=== PATIENT | male | born 1945 | race Caucasian/White ===

== ENCOUNTER 2023-11-10 15:35 | Outpatient (RCR) | payer MEDICARE, OTHER, SELFPAY | END 2023-11-10 23:59 | disposition home or self-care (01) | LOC: RPT 15:35 | PROVIDERS: ATTENDING PHYSICIAN Family Medicine | DX: M48.062 Spinal stenosis, lumbar region with neurogenic claudication (principal); R26.0 Ataxic gait; R26.89 Other abnormalities of gait and mobility; R29.6 Repeated falls; R26.2 Difficulty in walking, not elsewhere classified; Z73.6 Limitation of activities due to disability | CPT/HCPCS: 97110; 97162 ==

== ENCOUNTER 2023-11-17 12:09 | Outpatient (RCR) | payer MEDICARE, OTHER, SELFPAY | END 2023-11-24 15:30 | disposition home or self-care (01) | LOC: RPT 12:09 | PROVIDERS: ATTENDING PHYSICIAN Family Medicine | DX: M48.062 Spinal stenosis, lumbar region with neurogenic claudication (principal); R26.9 Unspecified abnormalities of gait and mobility; R26.0 Ataxic gait; R26.2 Difficulty in walking, not elsewhere classified; R26.89 Other abnormalities of gait and mobility; Z73.6 Limitation of activities due to disability | CPT/HCPCS: 97110 ==

== ENCOUNTER → 2024-06-05 07:30 | Outpatient (REF) | payer MEDICARE, OTHER, SELFPAY | LOC: EMG 07:30 | PROVIDERS: ATTENDING PHYSICIAN Specialist; FAMILY PHYSICIAN Family Medicine | DX: R20.0 Anesthesia of skin (principal) | CPT/HCPCS: 95886; 95911 ==

== ENCOUNTER → 2024-07-10 16:13 | Outpatient (REF) | payer MEDICARE, OTHER, SELFPAY | LOC: PAVMRI 16:13 | PROVIDERS: ATTENDING PHYSICIAN Specialist; FAMILY PHYSICIAN Family Medicine | DX: R26.81 Unsteadiness on feet (principal) | CPT/HCPCS: 70551 ==

== ENCOUNTER 2024-11-10 09:02 | Inpatient (IN) | payer MEDICARE, OTHER, SELFPAY ==
[2024-11-08] VITALS (13 sets, daily range): BP systolic 115–159; BP diastolic 48–99; PULSE 75; O2SAT 99; BMI 30.7
--- NOTE | 2024-11-08 09:14 | ED.GENMED ---
History of Present Illness
General
Chief Complaint: Weakness
Source: patient and ambulance crew
Exam Limitations: none
Time Seen by Provider: 11/08/24 09:07
Nursing documentation reviewed up to this point in time: agreed with
History of Present Illness
History of Present Illness:
The patient is a pleasant 79-year-old man who arrives from home with complaints of 3 to 4 days of generalized weakness and increased difficulty walking. Patient reports he feels he needs to go to ' [facility]' for rehab. Patient admits that he
feels he needs to build up his strength. Patient denies all pain. He denies headache, sore throat, cough, shortness of breath, nausea, vomiting and diarrhea. Patient reports that over the last 3 days, he is fallen 1 time each day, which is
unusual for him. Patient reports that during these episodes he had been walking and slid down to the ground due to a feeling of generalized weakness. Patient reports that last night he slept on the hardwood floor for 6 hours because he had gotten
up to go to the bathroom and on his way back, felt too weak to walk and slept on the floor. Patient has not hit his head with any of these falls over the last few days. Patient denies any pain in his neck, back, chest or abdomen with any of the
falls. He reports on a good day he is able to walk around well with a walker. Patient lives at home with his who he reports is very petite and unable to help him after he falls. Additionally, he reports that she is nearly blind due to
macular degeneration.
Past History
Past History
ED Past Medical History: CAD, HTN, Hypercholesterolemia, IDDM, Valvular disease (h/o TAVR history of 10 of) and Other (colon Polyps GI bleeding)
ED Past Surgical History: Appendectomy, Cardiac (CABG, 2 stents, NSTEMI, Valve replaced) and Cholecystectomy
Social History
Tobacco: Non-smoker
Alcohol: None
Drug: None
Personal:
Living: with family
Employment: Retired
Family History
Family History: Other
Review of Systems
Review of Systems
Allergies reviewed?: Yes
Other source history: ambulance crew
All Other Systems: ROS reviewed and negative except as documented in HPI and ROS
Constitutional: Reports fatigue
EENT: Reports no symptoms
Respiratory: Reports no symptoms
Cardiac: Reports no symptoms
ABD/GI: Reports no symptoms
: Reports no symptoms
Musculoskeletal: Reports other (Generalized muscle weakness, especially in legs)
Skin: Reports no symptoms
Neurological: Reports no symptoms
Endocrine: Reports no symptoms
Hematologic/Lymphatic: Reports no symptoms
Psychiatric: Reports no symptoms
Phy Exam
Physical Exam
Physical Exam:
Physical Exam
General: no apparent distress, not acutely ill. Patient is smiling, conversational. Atraumatic appearing face and head. No areas of scalp contusion or hematoma
Neck: supple. no meningeal signs. normal psoterior pharynx. Dry mucous membrane
Heart: s1/s2 regular rate and rhythm,
Lungs: no acute respiratory distress. clear bilaterally. Breathing comfortably. No vertebral spine tenderness
Abdomen: normal bowel sounds. not tender. no CVAT
Neuro: alert and orientedx3 no focal neurological deficits. Follows all commands appropriately. 5 out of 5 strength in all extremities without drift. Normal [id number]. Visual landry intact
Skin: Healing wound of right medial foot without any sign of right foot swelling or erythema.
Psychiatric: well kept. interactive and cooperative
Extremities: no edema. no calf tenderness. negative homans. good distal pulses. No deformity, tenderness or swelling of upper or lower extremities
Course
Orders/Labs/Results
Orders:
Orders
11/08/24 09:09
Electrocardiogram (*1) Urgent
Reason for Study: Fatigue / Weakness
EKG- Treatment ONCE
Pt Eval And Treat Urgent
Treatment: ambulatory dysfunction
Activity Level: Out of Bed-Early Mobility
11/08/24 09:15
COVID-19 Antigen Urgent
Source: Nasal Swab
Complete Blood Count/With Diff Urgent
Comprehensive Metabolic Panel Urgent
Creatine Phosphokinase Urgent
Comment: ADD ON
Troponin I Urgent
11/08/24 09:50
CR Chest - 2 Views Urgent
Comment:
Reason For Exam: weakness
11/08/24 10:15
Add On- LAB Urgent
Tests Added?: total CK [Creatine Phosphokinase]
11/08/24 12:23
Urinalysis Reflex To Culture Urgent
Date Specimen was Collected: 11/08/24
Time Specimen was Collected: 12:17
Urine Microscopic Reflex Cult Urgent
Urine Culture Urgent
PILAR Source: U
Specimen Description:
Date Specimen was Collected: 11/08/24
Time Specimen was Collected: 12:17
11/08/24 13:04
CefTRIAXone [Rocephin] 1,000 mg IV NOW STA
11/08/24 13:21
Admit/Transfer Patient As Directed
Co-Sign Provider:
Level of Care: Observation services
Assign to:: Medical/Surgical
Physician / Group: jordi
Diagnosis: uti
PRN Pain Medication Management As Directed
May give lesser potent ordered pain med per pt: Yes
preference::
Protocol:: Medication orders for pain may be administered in a
manner that supports deferring to patient preference
when the pt is:
- Requesting an ordered lesser potent pain medication.
Least to most potent pain medications are defined
as: acetaminophen < NSAID < tramadol < opioids
(morphine, oxycodone, hydromorphone).
- Requesting a lesser dose of the same medication IF
ORDERED.
- Requesting a less intrusive route of administration
if both routes are prescribed by the provider (PO <
IV).
01/29/25 13:22
Code Status As Directed
Resuscitation Status: Full Code
11/08/24 13:25
Influenza A+B Rapid Molecular Urgent
PILAR Source: Nasal Swab
Specimen Description:
Abnormal Lab Results
11/08/24 11/08/24
09:15 12:23
WBC 20.4 H 10^3/uL
(4.8-10.8)
RBC 4.02 L 10^6/uL
(4.70-6.10)
Hgb 12.0 L g/dL
(13.0-18.0)
Hct 36.2 L %
(39.0-52.0)
MPV 10.5 H fL
(7.4-10.4)
Abs Immat Gran (auto) 0.1 H 10^3/uL
(0-0.05)
Absolute Neuts (auto) 15.5 H 10^3/uL
(1.4-6.5)
Absolute Monos (auto) 1.9 H 10^3/uL
(0.1-0.6)
Neutrophils % 75.9 H %
(42.2-75.2)
Lymphocytes % 13.4 L %
(20.5-51.1)
Monocytes % 9.4 H %
(1.7-9.3)
BUN 27 H mg/dl
(9-20)
Glucose 163 H mg/dl
(70-99)
Troponin I 0.045 H* ng/ml
Urine Ketones 1+ A
(Negative)
Ur Occult Blood Reflex 1+ A
(Negative)
Urine Nitrite (Reflex) Positive A
(Negative)
Leukocyte Esterase Rfl 2+ A
(Negative)
Urine RBC 3-6 A /HPF
(0-2)
Urine WBC (Reflex) 26-30 A /HPF
(0-5)
Urine Bacteria (Reflex) Many A
(Negative)
Urine Albumin (Reflex) 2+ A
(Neg - Trace)
11/08/24 09:15
11/08/24 09:15
Vital Signs
Initial and Last Documented VS:
Initial Vital Signs
Temp Pulse Resp BP Pulse Ox
98.1 F 83 18 147/63 97
11/08/24 08:57 11/08/24 08:57 11/08/24 08:57 11/08/24 08:57 11/08/24 08:57
Last Documented Vital Signs
Temp Pulse Resp BP Pulse Ox
98.1 F 76 18 115/83 97
11/08/24 08:57 11/08/24 10:00 11/08/24 10:00 11/08/24 10:00 11/08/24 09:03
MDM/Problems Addressed
Differential Diagnosis Includes:
Acute on chronic ambulatory dysfunction, acute UTI, acute hyponatremia, acute coronary syndrome
MDM/Problems Addressed:
Patient presents with acute generalized weakness and ambulatory dysfunction
Chronic conditions affecting care: DM and CAD
Acute Exacerbation and/or Progression of Chronic Illness:
Patient may have acute exacerbation of coronary artery disease causing generalized weakness
*Radiology
Radiology exam reviewed: preliminary read by ED provider (Chest x-ray read by me. No acute disease) and radiology read reviewed
*Pulse Oximetry
Patient hypoxic: no
*EKG
Interpreted by ED Provider?: Yes
Interpretation: abnormal
Comparison EKG: no changes
Rate: normal
Rhythm: sinus
Obion: left axis deviation
Interval: normal interval
QRS Pattern: right bundle branch block
Ischemia: non-specific ST changes
*Grid Trimmer Interpretation
Rate: normal
Interpretation: normal
Rhythm: sinus
*Critical Care Note
Total Time (30-74mins, 75-104mins- exclusive of procedures): Not Applicable
Data Reviewed
Review of Other/Old Records Reveals: Testing (Echo done in August 2023 showed an EF of 45 to 50%)
ED Attending Note
-
Portions of this chart may have been created with voice recognition software.� Occasional wrong word or��sound alike� substitutions may have occurred due to the inherent limitations of voice recognition software.
Discharge Plan
Departure
Patient Disposition: Admit
Date of Disposition: 11/08/24
Time of Disposition: 13:02
Admit to: Med/Surg
Presentation/result/management discussed w/ accepting MD/DO: Hospitalist
Patient with high blood pressure during this ER visit?: No
Condition: Good
Covid-19: Negative COVID-19
Discharge Problem:
Falls frequently, Acute UTI, Generalized muscle weakness
Prescriptions:
No Action
isosorbide mononitrate 30 MG tablet extended release 24 hr
30 mg PO BID
lisinopril 5 MG tablet
5 mg PO DAILY
cyanocobalamin (vitamin B-12) 1,000 MCG tablet
1,000 mcg PO DAILY
aspirin 81 MG tablet,delayed release (DR/EC)
81 mg PO DAILY
clopidogrel [Plavix] 75 MG tablet
75 mg PO DAILY Qty: 30 0RF
atorvastatin [Lipitor] 80 mg Tablet
80 mg PO QPM
famotidine [Pepcid] 40 mg Tablet
40 mg PO HS
metoprolol succinate 25 mg Tablet Extended Release 24 Hr
25 mg PO DAILY
spironolactone 50 MG tablet
50 mg PO DAILY
PreserVision AREDS 2,148 mcg-113 mg-45 mg-17.4mg Tablet
1 tab PO DAILY
Novolin R FlexPen 100 unit/mL (3 mL) Insulin Pen
30 unit SC TID
Referrals:
Holly Serrato MD [Family Provider] -
Interventions
Interventions:
*Risk Screen - Suicide Last Done: 11/08/24 08:57
*General Assessment Last Done: 11/08/24 08:57
*Neglect/Abuse Screening Last Done: 11/08/24 08:57
*ED COVID-19 Vaccine History Last Done: 11/08/24 09:30
ED- Cardiac Assessment Last Done: 11/08/24 09:30
ED- Neurological Assessment Last Done: 11/08/24 09:30
ED- Pulmonary Assessment Last Done: 11/08/24 09:30
Discharge Date and Time
Print Language: SLOVENIAN
[2024-11-08 09:27] LABS: % Basophils 0.4 % (0-2); % Eosinophils 0.6 % (0-6); % Immature Granulocytes 0.3 % (0-0.5); % Lymphocytes 13.4 % (20.5-51.1); % Monocytes 9.4 % (1.7-9.3); % Neutrophils 75.9 % (42.2-75.2); Absolute Basophils 0.1 10^3/uL (0-0.2); Absolute Eosinophils 0.1 10^3/uL (0-0.7); Absolute Immature Granulocytes 0.1 10^3/uL (0-0.05); Absolute Lymphocytes 2.7 10^3/uL (1.2-3.4); Absolute Monocytes 1.9 10^3/uL (0.1-0.6); Absolute Neutrophils 15.5 10^3/uL (1.4-6.5); Hematocrit 36.2 % (39.0-52.0); Mean Corp Hgb Conc. 33.1 g/dL (33.0-37.0); Mean Corpuscular Hgb 29.9 pg (27.0-31.0); Mean Platelet Volume 10.5 fL (7.4-10.4); Nucleated Red Blood Cells % 0 % (-); Platelet Count 203 10^3/uL (130-400); Red Blood Cell Count 4.02 10^6/uL (4.70-6.10); Red Cell Dist. Width 13.1 % (11.5-14.5); White Blood Cell Count 20.4 10^3/uL (4.8-10.8)
[2024-11-08 09:39] LABS: COVID-19 Antigen Negative (Negative)
[2024-11-08 09:45] LABS: ALT (SGPT) 16 U/L (0-50); AST (SGOT) 21 U/L (17-59); Albumin 4.1 g/dl (3.5-5.0); Alkaline Phosphatase 60 U/L (38-126); Blood Urea Nitrogen 27 mg/dl (9-20); Calcium 9.4 mg/dl (8.4-10.2); Carbon Dioxide 28 mmol/L (22-30); Chloride 100 mmol/L (98-107); Glucose 163 mg/dl (70-99); Potassium 4.4 mmol/L (3.5-5.1); Sodium 139 mmol/L (135-145); Total Bilirubin 0.8 mg/dl (0.2-1.3); eGFR 55.19
[2024-11-08 09:56] LABS: Troponin I 0.045 ng/ml
[2024-11-08 12:48] LABS: Urine Albumin 2+ (Neg - Trace); Urine Bilirubin Negative (Negative); Urine Character Clear (Clear); Urine Color Yellow; Urine Glucose Negative (Negative); Urine Ketone 1+ (Negative); Urine Leukocyte 2+ (Negative); Urine Nitrite Positive (Negative); Urine Occult Blood 1+ (Negative); Urine Urobilinogen Negative (Neg - 1+)
[2024-11-08 13:10] LABS: Urine Bacteria Many (Negative); Urine White Cell 26-30 /HPF (0-5)
--- NOTE | 2024-11-08 13:25 | HPS.HSE ---
Addendum entered and electronically signed by Fanta Carranza MD 11/08/24 13:37:
History of CVA a year ago at [place].
Original Note:
Family Physician
-
Family Physician: Holly Serrato
Chief Complaint
-
falls
History of Present Illness
79-year-old male past medical history of NSTEMI status post stents, CAD status post CABG, severe status post TAVR in 2017, right bundle branch block, hyponatremia, type 2 diabetes, CKD 3, hypertension, hyperlipidemia, blindness secondary to
macular degeneration, presenting with 3 to 4 days of generalized weakness and difficulty walking. He reports that he feels like he needs to go to [facility] for rehab. He denies pain. He denies headache, sore throat, cough, shortness of breath,
nausea vomiting or diarrhea or urinary symptoms. Over the past 2 days he has fallen 1 time each day. Last night he slept on the ground for 6 hours because he fell on the way to the bathroom. He did not hit his head. He normally ambulates with
walker.
Denies smoking or alcohol use.
Medical History
Past Medical History
Past Medical History: Reports Other (NSTEMI status post stents, CAD status post CABG, severe status post TAVR in 2017, right bundle branch block, hyponatremia, type 2 diabetes, CKD 3, hypertension, hyperlipidemia, blindness secondary to macular
degeneration)
Past Surgical History: Reports None
Social History
Tobacco: Non-smoker
Alcohol: None
Drug: None
Family History
Family History: Not pertinent
Allergies / Home Medications
Allergies reflects when Allergies were last updated in [facility].
Home Medications with original date entered in [employer] [facility]
Allergy/Medication List:
Allergies
Allergy/AdvReac Type Severity Reaction Status Date / Time
codeine Allergy Nausea Verified 11/08/24 09:05
Neuromuscular Blockers, AdvReac Unknown Unknown Verified 11/08/24 09:05
Steroidal
Home Medications
aspirin 81 mg tablet,delayed release 81 mg PO DAILY Blood clot prevention/tx 07/28/20
cyanocobalamin (vitamin B-12) 1,000 mcg tablet 1,000 mcg PO DAILY Supplement 07/28/20
isosorbide mononitrate 30 mg tablet,extended release 24 hr 30 mg PO BID Heart disease/condition 07/28/20
lisinopril 5 mg tablet 5 mg PO DAILY Blood pressure 07/28/20
clopidogrel 75 mg tablet (Plavix) 75 mg PO DAILY #30 tabs 08/24/23
atorvastatin 80 mg tablet (Lipitor) 80 mg PO QPM 11/08/24
famotidine 40 mg tablet (Pepcid) 40 mg PO HS 11/08/24
insulin regular human 100 unit/mL (3 mL) subcutaneous pen (Novolin R FlexPen) 30 unit SC TID 11/08/24
metoprolol succinate 25 mg tablet,extended release 24 hr 25 mg PO DAILY 11/08/24
spironolactone 50 mg tablet 50 mg PO DAILY Fluid retention/Swelling 11/08/24
vitamins A,C,G-djcd-jifwtt 2,148 mcg-113 mg-45 mg-17.4 mg tablet (PreserVision AREDS) 1 tab PO DAILY 11/08/24
Review of Systems
-
History Source: Patient
A 12 point ROS was completed and negative except as noted: Yes
Constitutional: Reports No Symptoms
EENT: Reports No Symptoms
Respiratory: Reports No Symptoms
Cardiac: Reports No Symptoms
Abdomen/GI: Reports No Symptoms
: Reports No Symptoms
Musculoskeletal: Reports No Symptoms
Skin: Reports No Symptoms
Neurological: Reports No Symptoms
Endocrine: Reports No Symptoms
Hematologic/Lymphatic: Reports No Symptoms
Psych: Reports No Symptoms
Physical Exam
Vital Signs
Vital Signs
Temp Pulse Resp BP Pulse Ox
98.1 F 76 18 115/83 97
11/08/24 08:57 11/08/24 10:00 11/08/24 10:00 11/08/24 10:00 11/08/24 09:03
Physical Exam
General: Well Developed, Well Nourished and No Apparent Distress
HEENT: NormoCephalic, Moist mucous membranes and Atraumatic
Respiratory: Clear
Cardiac: S1/S2 and Regular Rhythm; No Murmur or Rub
GI: Soft, Non Tender, Non Distended and Normal Bowel Sounds; No Organomegaly
Rectal: Deferred by Provider
Musculoskeletal: No Clubbing, No Cyanosis and No Edema
Skin: No Rash
Neuro: Nonfocal/grossly intact
Laboratory Results
-
11/08/24 09:15
11/08/24 09:15
Laboratory Results
Total Bilirubin 0.8 mg/dl (0.2-1.3) 11/08/24 09:15
AST 21 U/L (17-59) 11/08/24 09:15
ALT 16 U/L (0-50) 11/08/24 09:15
Alkaline Phosphatase 60 U/L (38-126) 11/08/24 09:15
Troponin I 0.045 ng/ml H* 11/08/24 09:15
Data Reviewed
-
Lab Data: Labs Reviewed by me
Old Records: Reviewed
Impression/Plan
-
IMPRESSION:
PLAN:
# Ambulatory dysfunction/falls secondary to UTI
-No urinary symptoms
-Leukocytosis of 20
-Urinalysis shows 26-30 WBC, positive nitrates
-COVID-negative, check influenza
-Chest x-ray negative
-Ceftriaxone
History of CAD/NSTEMI status post stents
CAD status post CABG
-Continue aspirin, Plavix, statin
-Continue isosorbide nitrate
-Continue metoprolol
-Continue spironolactone
Severe aortic stenosis status post TAVR in 2017
Ischemic cardiomyopathy
-EF of 45%
-Continue spironolactone
History of right bundle branch block
Type 2 diabetes
-Continue Novolin 30 units 3 times daily
Essential hypertension
-Continue lisinopril
CKD 3
-Renal function at baseline
Hyperlipidemia
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
GERD
-Continue famotidine
Obesity
Full code
DVT prophylaxis�heparin
Cardiac diet
[2024-11-08] MEDS: ROCEPHIN 1000 MG IV (13:46)
[2024-11-08 14:15] LABS: Creatine Phosphokinase 144 U/L (55-170)
[2024-11-08 19:36] LABS: Glucose - Point of Care 240 mg/dl (70-99)
--- NOTE | 2024-11-08 19:58 | PTCARENOTE ---
Pt received from ED to [facility]. Pt oriented to room and call chavez.
[2024-11-08] MEDS: NOVOLOG FLEXPEN-LOW RESISTANCE SC (20:17)
[2024-11-08] MEDS: NovoLIN R Flexpen SC (20:17)
[2024-11-08] MEDS: PEPCID 40 MG PO (20:19)
[2024-11-08] MEDS: LIPITOR 80 MG PO (20:19)
[2024-11-08] MEDS: IMDUR (EXTENDED RELEASE) 30 MG PO (20:19)
[2024-11-08] MEDS: HEPARIN 5000 UNITS SC (20:19)
[2024-11-08 23:18] LABS: Glucose - Point of Care 228 mg/dl (70-99)
--- NOTE | 2024-11-09 07:04 | W.PN.HOSP.TC ---
Today's Communication/Plan
-
PT/OT
Telemetry
Antibiotics
Assessment / Plan
Assessment / Plan
Physical Exam
General: Well Developed, Well Nourished and No Apparent Distress
HEENT: Normocephalic, Moist mucous membranes and Atraumatic
Respiratory: Clear
Cardiac: S1/S2 and Regular Rhythm; No Murmur or Rub
GI: Soft, Non Tender, Non Distended and Normal Bowel Sounds.
: No CVA tenderness on either side.
Musculoskeletal: No Cyanosis and No Edema
Skin: Warm. Dry.
Neuro: AAOx3. Nonfocal/grossly intact.
Assessment/Plan
79-year-old male past medical history of NSTEMI status post stents, CAD status post CABG, severe status post TAVR in 2017, right bundle branch block, hyponatremia, type 2 diabetes, CKD 3, hypertension, hyperlipidemia, blindness secondary to
macular degeneration, presented with 3 to 4 days of generalized weakness and difficulty walking. He reported that he felt like he needs to go to [facility] for rehab. He denied pain, headache, sore throat, cough, shortness of breath, nausea
vomiting or diarrhea or urinary symptoms. Over the 2 days prior to presentation, he had fallen 1 time each day. The night before admission, he slept on the ground for 6 hours because he fell on the way to the bathroom. He did not hit his head and he
denied any loss of consciousness associated with the fall. He normally ambulates with walker. Denies smoking or alcohol use.
#Ambulatory dysfunction/falls suspected secondary to UTI
-Not syncope as per patient's description (on 11/09/24) of events associated with falls
-Leukocytosis of 20
-Urinalysis shows 26-30 WBC, positive nitrates
-COVID-negative, influenza negative
-Chest x-ray unremarkable
-Continue Ceftriaxone, urine culture growing gram negative bacilli
#History of CAD/NSTEMI status post stents
#CAD status post CABG
-Continue aspirin, Plavix, statin
-Continue isosorbide nitrate
-Continue metoprolol
-Continue spironolactone
#Severe aortic stenosis status post TAVR in 2017
#Ischemic cardiomyopathy
-EF of 45%
-Continue spironolactone
#History of CVA a year ago at [place]
#History of right bundle branch block
#Type 2 diabetes mellitus
-Continue Novolin 30 units 3 times daily
#Essential hypertension
-Continue lisinopril
#CKD 3
-Renal function at baseline
#Hyperlipidemia
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
#GERD
-Continue famotidine
#Obesity
Full code
DVT prophylaxis�heparin
Cardiac diet
Anticipated Discharge: 24 - 48 hours
Subjective/Interval History
-
Date of Service: November 09, 2024
Patient was seen and examined. He reported feeling okay, denied any complaints.
Objective Data
-
Labs:
Laboratory Results
11/09/24
06:56
WBC Pending
Hgb Pending
Hct Pending
Plt Count Pending
Sodium Pending
Potassium Pending
Chloride Pending
Carbon Dioxide Pending
BUN Pending
Creatinine Pending
Glucose Pending
Calcium Pending
Total Bilirubin Pending
AST Pending
ALT Pending
Alkaline Phosphatase Pending
Vital Signs:
Vital Signs
Temp Pulse Resp BP Pulse Ox
98.0 F 83 16 125/52 96
11/08/24 23:00 11/08/24 23:00 11/08/24 23:00 11/08/24 23:00 11/08/24 23:00
I&O
11/08/24 11/09/24 11/10/24
06:59 06:59 06:59
Intake Total 240 / 240
Output Total 200 / 200
Balance 40 / 40
[2024-11-09 07:51] VITALS: BP 152/72
[2024-11-09 08:03] LABS: Glucose - Point of Care 191 mg/dl (70-99)
[2024-11-09 08:11] LABS: % Basophils 0.6 % (0-2); % Eosinophils 2.3 % (0-6); % Immature Granulocytes 0.4 % (0-0.5); % Lymphocytes 16.3 % (20.5-51.1); % Monocytes 9.7 % (1.7-9.3); % Neutrophils 70.7 % (42.2-75.2); Absolute Basophils 0.1 10^3/uL (0-0.2); Absolute Eosinophils 0.3 10^3/uL (0-0.7); Absolute Lymphocytes 1.8 10^3/uL (1.2-3.4); Absolute Monocytes 1.1 10^3/uL (0.1-0.6); Hematocrit 31.7 % (39.0-52.0); Hemoglobin 10.6 g/dL (13.0-18.0); Mean Corp Hgb Conc. 33.4 g/dL (33.0-37.0); Mean Corpuscular Volume 89.8 fL (80.0-94.0); Mean Platelet Volume 11.2 fL (7.4-10.4); Nucleated Red Blood Cells % 0 % (-); Platelet Count 177 10^3/uL (130-400); Red Blood Cell Count 3.53 10^6/uL (4.70-6.10); Red Cell Dist. Width 13.1 % (11.5-14.5); White Blood Cell Count 11.3 10^3/uL (4.8-10.8)
[2024-11-09 08:30] LABS: ALT (SGPT) 14 U/L (0-50); AST (SGOT) 18 U/L (17-59); Albumin 3.4 g/dl (3.5-5.0); Alkaline Phosphatase 55 U/L (38-126); Blood Urea Nitrogen 23 mg/dl (9-20); Calcium 8.4 mg/dl (8.4-10.2); Carbon Dioxide 27 mmol/L (22-30); Chloride 101 mmol/L (98-107); Estimated Creatinine Clearance 56 ml/min; Glucose 170 mg/dl (70-99); Potassium 4.2 mmol/L (3.5-5.1); Sodium 136 mmol/L (135-145); Total Bilirubin 0.8 mg/dl (0.2-1.3); Total Protein 5.9 g/dl (6.3-8.2); eGFR > 60.00
[2024-11-09] MEDS: NovoLIN R Flexpen 30 UNITS SC ×3 (08:40→17:20)
[2024-11-09] MEDS: NOVOLOG FLEXPEN-LOW RESISTANCE 1 UNITS SC ×2 (08:41→12:38)
[2024-11-09] MEDS: HEPARIN 5000 UNITS SC ×2 (08:41→20:23)
[2024-11-09] MEDS: OCUVITE SOFTGEL 1 CAP PO (08:42)
[2024-11-09] MEDS: TOPROL XL 25 MG PO (08:42)
[2024-11-09] MEDS: VITAMIN B-12 1000 MCG PO (08:42)
[2024-11-09] MEDS: ALDACTONE 50 MG PO (08:42)
[2024-11-09] MEDS: ZESTRIL 5 MG PO (08:42)
[2024-11-09] MEDS: ASPIR LOW (ENTERIC COATED) 81 MG PO (08:42)
[2024-11-09] MEDS: IMDUR (EXTENDED RELEASE) 30 MG PO ×2 (08:42→20:23)
[2024-11-09] MEDS: PLAVIX 75 MG PO (08:42)
[2024-11-09 10:25] LABS: Glycohemoglobin (HgbA1c) 7.6 % (4.0-5.6)
--- NOTE | 2024-11-09 10:28 | CM ---
CM reviewed chart, patient seen bedside, initial assessment completed. Patient resides with his in a two story home, ramp to enter, bedroom on second floor (7 + 7 steps to second floor). Patient reports having a walker, wheelchair, and scooter
in the home. Patient reports VN in past, unsure agency, outpatient PT at ambulatory center, and rehab in past ([facility]). Patient PCP Holly Serrato, pharmacy [facility]. PT recommendations acute vs SNF- discussed with Yuan at
[facility], do not see qualifying acute rehab diagnosis. Patient unsure if he would like SNF at this time, would like to consider it. Patient [facility] qualify [facility]. GARCIA form provided/reviewed, refused to sign, placed in chart. CM will
continue to follow for all discharge planning needs.
Plan; home with VN versus SNF, patient unsure at this time.
[2024-11-09 12:02] LABS: Glucose - Point of Care 198 mg/dl (70-99)
[2024-11-09 12:44] VITALS: BP 116/52
[2024-11-09 13:02] VITALS: BP 116/52; PULSE 73
[2024-11-09] MEDS: ROCEPHIN 1000 MG IV (13:45)
[2024-11-09] MEDS: STERILE WATER FOR INJECTION 10 ML IV (13:46)
[2024-11-09 15:00] VITALS: BP 146/64
[2024-11-09 17:02] LABS: Glucose - Point of Care 134 mg/dl (70-99)
[2024-11-09] MEDS: NOVOLOG FLEXPEN-LOW RESISTANCE SC (17:08)
[2024-11-09] MEDS: LIPITOR 80 MG PO (17:20)
[2024-11-09 19:00] VITALS: BP 118/74
[2024-11-09] MEDS: PEPCID 40 MG PO (20:24)
[2024-11-09 21:34] LABS: Glucose - Point of Care 100 mg/dl (70-99)
[2024-11-09 23:13] VITALS: BP 149/71
[2024-11-10 03:00] VITALS: BP 137/58
[2024-11-10 06:56] VITALS: BP 134/70
--- NOTE | 2024-11-10 07:26 | W.PN.HOSP.TC ---
Today's Communication/Plan
-
Discharge today
Assessment / Plan
Assessment / Plan
Physical Exam
General: Well Developed, Well Nourished and No Apparent Distress
HEENT: Normocephalic, Moist mucous membranes and Atraumatic
Respiratory: Clear
Cardiac: S1/S2 and Regular Rhythm; No Murmur or Rub
GI: Soft, Non Tender, Non Distended and Normal Bowel Sounds.
: No CVA tenderness on either side.
Musculoskeletal: No Cyanosis and No Edema
Skin: Warm. Dry.
Neuro: AAOx3. Nonfocal/grossly intact.
Assessment/Plan
79-year-old male past medical history of NSTEMI status post stents, CAD status post CABG, severe status post TAVR in 2017, right bundle branch block, hyponatremia, type 2 diabetes, CKD 3, hypertension, hyperlipidemia, blindness secondary to
macular degeneration, presented with 3 to 4 days of generalized weakness and difficulty walking. He reported that he felt like he needs to go to [facility] for rehab. He denied pain, headache, sore throat, cough, shortness of breath, nausea
vomiting or diarrhea or urinary symptoms. Over the 2 days prior to presentation, he had fallen 1 time each day. The night before admission, he slept on the ground for 6 hours because he fell on the way to the bathroom. He did not hit his head and he
denied any loss of consciousness associated with the fall. He normally ambulates with walker. Denies smoking or alcohol use.
#Ambulatory dysfunction/falls suspected secondary to UTI
#Klebsiella Pneumoniae UTI
-No symptoms of UTI however
-Not syncope as per patient's description (on 11/09/24) of events associated with falls
-Leukocytosis of 20
-Urinalysis shows 26-30 WBC, positive nitrates
-COVID-negative, influenza negative
-Chest x-ray unremarkable
-Continue Ceftriaxone, on discharge, transition to oral third generation Cephalosporin for a short course
-Patient does not want to go to acute rehab facility/SNF
-Patient did not want an echocardiogram this hospitalization, especially since he said that he did not pass out prior to arrival
-Practice fall precautions at home
#History of CAD/NSTEMI status post stents
#CAD status post CABG
-Continue aspirin, Plavix, statin
-Continue isosorbide nitrate
-Continue metoprolol
-Continue spironolactone
#Mildly Low Magnesium
-IV Magnesium given on 11/10/24
-Oral magnesium supplementation on discharge
-Potassium is okay
-Recheck BMP and Magnesium outpatient
#Severe aortic stenosis status post TAVR in 2017
#Ischemic cardiomyopathy
-EF of 45%
-Continue spironolactone
#History of CVA a year ago at [place]
#History of right bundle branch block
#Type 2 diabetes mellitus
-Continue Novolin 30 units 3 times daily
#Essential hypertension
-Continue lisinopril
#CKD 3
-Renal function at baseline
#Hyperlipidemia
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
#GERD
-Continue famotidine
#Obesity
Full code
DVT prophylaxis�heparin
Cardiac diet
More than 30 minutes spent in discharge including
Final examination of the patient
Summarizing hospital stay
Instructions for continuing care to all relevant caregivers
Preparation of discharge records, prescriptions, and referral forms
Total time spent (in minutes): 37
Anticipated Discharge: Today
Subjective/Interval History
-
Date of Service: November 10, 2024
Patient was seen and examined. He denied any symptoms or complaints.
Objective Data
-
Labs:
Laboratory Results
11/10/24
07:19
WBC Pending
Hgb Pending
Hct Pending
Plt Count Pending
Sodium Pending
Potassium Pending
Chloride Pending
Carbon Dioxide Pending
BUN Pending
Creatinine Pending
Glucose Pending
Calcium Pending
Vital Signs:
Vital Signs
Temp Pulse Resp BP Pulse Ox
97.9 F 87 18 134/70 97
11/10/24 06:56 11/10/24 06:56 11/10/24 06:56 11/10/24 06:56 11/10/24 06:56
I&O
11/09/24 11/10/24 11/11/24
06:59 06:59 06:59
Intake Total 240 / 240 720 / 720
Output Total 200 / 200 400 / 400
Balance 40 / 40 320 / 320
[2024-11-10 07:52] LABS: Hematocrit 33.5 % (39.0-52.0); Hemoglobin 11.5 g/dL (13.0-18.0); Mean Corp Hgb Conc. 34.3 g/dL (33.0-37.0); Mean Corpuscular Hgb 30.5 pg (27.0-31.0); Mean Corpuscular Volume 88.9 fL (80.0-94.0); Mean Platelet Volume 10.7 fL (7.4-10.4); Platelet Count 193 10^3/uL (130-400); Red Blood Cell Count 3.77 10^6/uL (4.70-6.10); Red Cell Dist. Width 12.7 % (11.5-14.5); White Blood Cell Count 7.7 10^3/uL (4.8-10.8)
[2024-11-10 08:25] LABS: Blood Urea Nitrogen 22 mg/dl (9-20); Calcium 8.5 mg/dl (8.4-10.2); Carbon Dioxide 28 mmol/L (22-30); Chloride 99 mmol/L (98-107); Estimated Creatinine Clearance 56 ml/min; Glucose 108 mg/dl (70-99); Magnesium 1.4 mg/dl (1.6-2.3); Potassium 4.6 mmol/L (3.5-5.1); Sodium 135 mmol/L (135-145); eGFR > 60.00
[2024-11-10 08:35] LABS: Glucose - Point of Care 128 mg/dl (70-99)
[2024-11-10] MEDS: NOVOLOG FLEXPEN-LOW RESISTANCE SC ×2 (08:36→17:06)
[2024-11-10] MEDS: IMDUR (EXTENDED RELEASE) 30 MG PO (08:37)
[2024-11-10] MEDS: ASPIR LOW (ENTERIC COATED) 81 MG PO (08:37)
[2024-11-10] MEDS: ZESTRIL 5 MG PO (08:37)
[2024-11-10] MEDS: PLAVIX 75 MG PO (08:37)
[2024-11-10] MEDS: ALDACTONE 50 MG PO (08:37)
[2024-11-10] MEDS: VITAMIN B-12 1000 MCG PO (08:37)
[2024-11-10] MEDS: NovoLIN R Flexpen 30 UNITS SC ×3 (08:37→17:06)
[2024-11-10] MEDS: OCUVITE SOFTGEL 1 CAP PO (08:38)
[2024-11-10] MEDS: HEPARIN 5000 UNITS SC (08:38)
[2024-11-10] MEDS: TOPROL XL 25 MG PO (08:38)
[2024-11-10 11:15] VITALS: BP 99/55
[2024-11-10 11:47] LABS: Glucose - Point of Care 206 mg/dl (70-99)
[2024-11-10 12:07] VITALS: BP 105/58; PULSE 93; O2SAT 100
[2024-11-10] MEDS: NOVOLOG FLEXPEN-LOW RESISTANCE 2 UNITS SC (12:19)
[2024-11-10] MEDS: ROCEPHIN 1000 MG IV (13:11)
[2024-11-10] MEDS: STERILE WATER FOR INJECTION 10 ML IV (13:11)
--- NOTE | 2024-11-10 14:01 | CM ---
CM received update patient made inpatient status, patient seen bedside, discussed switch to inpatient status, IMM provided, placed in chart. CM discussed PT evaluations continue to recommend rehab. Patient reports his has macular degeneration
and patient is not agreeable to rehab, does not want to leave alone in the home. Patient reports he feels comfortable returning home, is agreeable to referral to [facility] for home therapy. Referral placed in [facility]. CM will continue to follow for
all discharge planning needs.
Plan; home with VN, patient not agreeable to rehab at this time.
[2024-11-10 15:39] VITALS: BP 110/66
[2024-11-10] MEDS: MAGNESIUM SULFATE 50 IV (16:44)
[2024-11-10 16:56] LABS: Glucose - Point of Care 148 mg/dl (70-99)
[2024-11-10] MEDS: LIPITOR 80 MG PO (17:05)
== END 2024-11-10 19:59 | disposition home or self-care (01) | DRG 690 ==
LOC: 4 WEST ACU 09:02
PROVIDERS: ADMITTING PHYSICIAN Hospitalist; ATTENDING PHYSICIAN Hospitalist; EMERGENCY PHYSICIAN Emergency Medicine; FAMILY PHYSICIAN Family Medicine
DX: N39.0 Urinary tract infection, site not specified (principal); Z11.52 Encounter for screening for COVID-19; Z86.73 Personal history of transient ischemic attack (TIA), and cerebral infarction without residual deficits; I25.5 Ischemic cardiomyopathy; E11.22 Type 2 diabetes mellitus with diabetic chronic kidney disease; N18.30 Chronic kidney disease, stage 3 unspecified; I12.9 Hypertensive chronic kidney disease with stage 1 through stage 4 chronic kidney disease, or unspecified chronic kidney disease; E78.00 Pure hypercholesterolemia, unspecified; K21.9 Gastro-esophageal reflux disease without esophagitis; E66.9 Obesity, unspecified; Z68.30 Body mass index [BMI] 30.0-30.9, adult; H35.30 Unspecified macular degeneration; I25.10 Atherosclerotic heart disease of native coronary artery without angina pectoris; Z79.4 Long term (current) use of insulin; Z86.0100 Personal history of colon polyps, unspecified; Z95.1 Presence of aortocoronary bypass graft; Z95.2 Presence of prosthetic heart valve
CPT/HCPCS: 71046; 80048; 80053; 81003; 81015; 82550; 82962; 83036; 83735; 84484; 85025; 85027; 87077; 87086; 87186; 87502; 87811; 93005; 96374; 97167; 97530; 99285

== ENCOUNTER → 2024-11-16 15:24 | Outpatient (REF) | payer MEDICARE, OTHER, SELFPAY ==
[2024-11-16 17:00] LABS: Hematocrit 35.2 % (39.0-52.0); Hemoglobin 11.8 g/dL (13.0-18.0); Mean Corp Hgb Conc. 33.5 g/dL (33.0-37.0); Mean Corpuscular Hgb 30.2 pg (27.0-31.0); Mean Platelet Volume 10.3 fL (7.4-10.4); Platelet Count 281 10^3/uL (130-400); Red Blood Cell Count 3.91 10^6/uL (4.70-6.10); Red Cell Dist. Width 13.2 % (11.5-14.5); White Blood Cell Count 11.3 10^3/uL (4.8-10.8)
[2024-11-16 17:03] LABS: Blood Urea Nitrogen 31 mg/dl (9-20); Carbon Dioxide 28 mmol/L (22-30); Chloride 103 mmol/L (98-107); Glucose 206 mg/dl (70-99); Magnesium 1.7 mg/dl (1.6-2.3); Sodium 138 mmol/L (135-145); eGFR > 60.00
== END ==
LOC: CLAB 15:24
PROVIDERS: ATTENDING PHYSICIAN Family Medicine
DX: I25.5 Ischemic cardiomyopathy (principal); N18.30 Chronic kidney disease, stage 3 unspecified; E83.42 Hypomagnesemia
CPT/HCPCS: 36415; 80048; 83735; 85027

== ENCOUNTER 2025-05-17 10:58 | Emergency (ER) | payer MEDICARE, OTHER, SELFPAY ==
[2025-05-17 11:03] VITALS: BP 117/58
[2025-05-17 11:05] VITALS: BP 117/58
[2025-05-17 11:07] VITALS: BMI 32.0
[2025-05-17 12:00] VITALS: BP 111/55
--- NOTE | 2025-05-17 12:52 | ED.GENMED ---
History of Present Illness
General
Chief Complaint: Fall
Source: patient, records and spouse
Time Seen by Provider: 05/17/25 12:37
History of Present Illness
History of Present Illness:
80-year-old male presents emergency department after slipping down of the ground while trying to get dressed this morning. Patient had a fall on and was hospitalized at [facility], discharged on Wednesday. He states that he was supposed to
have physical therapy at home upon discharge but they have not yet started their PT visits. He says he feels 'fine', but does note that he has generalized weakness particularly in his legs that he noticed especially this morning. Of note, patient
has a history of CVA, and at baseline says that his left leg is weak. This is not changed. He denies new numbness, new tingling, new weakness focal, chest pain, shortness of breath, palpitations, headache, dizziness, neck pain, nausea, vomiting,
anorexia, urinary symptoms, diarrhea, constipation, black stools, or other complaints. Today, while getting dressed he was able to pull up his diaper. However, as he was trying to pull his pants up he found that he could not get up out of the
chair successfully even though his was assisting him and he eventually slid onto the floor. Medics arrived and brought him here. He denies any other new complaints. He denies loss of consciousness or head injury
Past History
Past History
ED Past Medical History: CAD, HTN, Hypercholesterolemia, IDDM, Valvular disease (h/o TAVR history of 10 of) and Other (colon Polyps GI bleeding)
ED Past Surgical History: Appendectomy, Cardiac (CABG, 2 stents, NSTEMI, Valve replaced) and Cholecystectomy
Social History
Tobacco: Non-smoker
Alcohol: None
Drug: None
Personal:
Living: with family
Employment: Retired
Family History
Family History: Other
Phy Exam
Physical Exam
Physical Exam:
GENERAL: Alert , in no apparent distress
EYE: pupils equal and reactive, conj sl pale
NECK: Supple, no significant adenopathy, no midline tenderness.
ENT: o/p clr, mmm.
CARDIAC: Regular rate and rhythm .
LUNGS: Clear breath sounds bilaterally, no acute respiratory distress, no wheezes/rales/rhonchi
ABDOMEN: Soft, without focal tenderness, no r/g, no cvat
NEUROLOGICAL: Alert and oriented, baseline L>R lower weakness, sensory intact, cn 2-12 intact, f to n nl
SKIN: Warm and dry, skin intact.
MUSCULOSKELETAL: No edema, well perfused.
PSYCH: Normal and appropriate interaction.
Course
Orders/Labs/Results
Orders:
Orders
05/17/25 12:51
Case Management Consult ONCE
Case Management Consult: Discharge Planning
Pt Eval And Treat Urgent
Activity Level: Out of Bed-Early Mobility
05/17/25 12:52
Electrocardiogram (*1) Urgent
Reason for Study: Other
Other Reason for Exam: sepsis
EKG- Treatment ONCE
05/17/25 13:05
Complete Blood Count/With Diff Urgent
Comprehensive Metabolic Panel Urgent
05/17/25 14:38
0.9% Sodium Chloride 500 ml [Nss] 500 ml IV BOLUS
Abnormal Lab Results
05/17/25
13:05
RBC 3.51 L 10^6/uL
(4.70-6.10)
Hgb 10.8 L g/dL
(13.0-18.0)
Hct 32.0 L %
(39.0-52.0)
MPV 10.6 H fL
(7.4-10.4)
Absolute Monos (auto) 0.8 H 10^3/uL
(0.1-0.6)
Potassium 5.3 H mmol/L
(3.5-5.1)
Chloride 108 H mmol/L
(98-107)
Carbon Dioxide 21 L mmol/L
(22-30)
BUN 42 H mg/dl
(9-20)
Glucose 192 H mg/dl
(70-99)
05/17/25 13:05
05/17/25 13:05
Vital Signs
Initial and Last Documented VS:
Initial Vital Signs
Pulse Resp BP
84 20 117/58
05/17/25 11:03 05/17/25 11:03 05/17/25 11:03
Last Documented Vital Signs
Temp Pulse Resp BP Pulse Ox
98.3 F 75 20 119/53 99
05/17/25 11:05 05/17/25 16:00 05/17/25 16:00 05/17/25 13:05 05/17/25 13:05
*Pulse Oximetry
SaO2: 100
Oxygen Mode of Delivery: Room air
Patient hypoxic: no
*Critical Care Note
Total Time (30-74mins, 75-104mins- exclusive of procedures): Not Applicable
Update Note
Update Note:
Patient presents to the Emergency Department with __weakness
Number and Complexity of Problems Addressed at the Encounter
� Chronic conditions affecting care:
� Acute Exacerbation and/or Progression of Chronic Illness:
� Differential Diagnosis includes: But not limited to deconditioning, UTI, electrolyte disorder, etc.
Amount and/or Complexity of Data to be Reviewed and Analyzed
� I performed an independent evaluation of and my interpretation is:
EKG:
CT:
Xrays:
Laboratory Studies: Mild anemia which is relatively baseline compared to October 2024, mild prerenal azotemia
Other:
� Review of other/old records reveals: Discharge summary from October 2024 reviewed when patient was admitted for similar presentation of generalized weakness and difficulty walking. At that time he had a UTI, was treated and
discharged home
� Clinical information was obtained by an independent historian:
� Prescriptions/Medications Considered but not given:
� Further testing considered but not performed:
Risk of Complications and/or Morbidity or Mortality of Patient Management
� Social determinants of health affecting care:
� Discussion with other providers (PCP, Hospitalists, Consultants, etc):
� Escalation of care including admission/observation vs risk of discharge considered: Patient seen by case management and PT here, it is recommended that he go to a SNF. Given that he had a 2 night hospitalization last week,
case management states that patient needs a consult by hospitalist to recommend SNF placement which has been completed here and patient is accepted at the facility, transport being arranged at this time. No acute neurological findings noted, left
leg weakness is baseline. Suspect his weakness is related to deconditioning. Mild prerenal azotemia suspect related to mild dehydration, IV fluids being given now and patient will be encouraged to take in p.o. fluids at facility. (Note urine
sample canceled given no urinary sxs.)
ED Attending Note
-
Portions of this chart may have been created with voice recognition software.� Occasional wrong word or��sound alike� substitutions may have occurred due to the inherent limitations of voice recognition software.
Discharge Plan
Departure
Patient Disposition: Acute Rehab Facility
Date of Disposition: 05/17/25
Time of Disposition: 15:01
Discharge Problem:
Weakness
Prescriptions:
No Action
isosorbide mononitrate 30 MG tablet extended release 24 hr
30 mg PO BID
lisinopril 5 MG tablet
5 mg PO DAILY
aspirin 81 MG tablet,delayed release (DR/EC)
81 mg PO DAILY
clopidogrel [Plavix] 75 MG tablet
75 mg PO DAILY Qty: 30 0RF
atorvastatin [Lipitor] 80 mg Tablet
80 mg PO DAILY
famotidine [Pepcid] 40 mg Tablet
40 mg PO DAILY
metoprolol succinate 25 mg Tablet Extended Release 24 Hr
25 mg PO DAILY
spironolactone 50 MG tablet
50 mg PO DAILY
PreserVision AREDS 2,148 mcg-113 mg-45 mg-17.4mg Tablet
1 tab PO DAILY
gabapentin 300 mg capsule
300 mg PO HS
Novolin N FlexPen 100 unit/mL (3 mL) Insulin Pen
30 unit SC BID
magnesium oxide 500 mg magnesium tablet
500 mg PO HS
naproxen sodium [Aleve] 220 mg Tablet
220 mg PO BIDPRN PRN (Reason: mild pain)
amlodipine [Norvasc] 2.5 mg Tablet
2.5 mg PO DAILY
Referrals:
Holly Serrato MD [Family Provider, Family Practice] - Follow up in 2-3 days
Activity Restrictions/Additional Instructions:
IF YOU DEVELOP FEVER, CHEST PAIN, SHORTNESS OF BREATH, PAIN WITH URINATION, INCREASING OR NEW WEAKNESS, OR OTHER WORRISOME SIGNS, PLEASE RETURN TO THE ER IMMEDIATELY EXCLAMATION
Interventions
Interventions:
*Risk Screen - Suicide Last Done: 05/17/25 11:07
*General Assessment Last Done: 05/17/25 11:08
*Neglect/Abuse Screening Last Done: 05/17/25 11:07
*ED- Fall Risk Assessment Last Done: 05/17/25 11:08
*ED COVID-19 Vaccine History Last Done: 05/17/25 11:08
*Nursing Disposition Last Done: 05/17/25 16:17
ED-Musculoskeletal Assessment Last Done: 05/17/25 11:08
ED- Neurological Assessment Last Done: 05/17/25 11:08
ED-Skin Assessment Last Done: 05/17/25 11:08
Discharge Date and Time
Discharge Date/Time: 05/17/25 16:15
Print Language: J[place]
[2025-05-17 13:05] VITALS: BP 119/53
[2025-05-17 13:13] LABS: Hematocrit 32.0 % (39.0-52.0); Hemoglobin 10.8 g/dL (13.0-18.0); Mean Corp Hgb Conc. 33.8 g/dL (33.0-37.0); Mean Corpuscular Volume 91.2 fL (80.0-94.0); Nucleated Red Blood Cells % 0 % (-); Platelet Count 195 10^3/uL (130-400); Red Cell Dist. Width 12.9 % (11.5-14.5)
[2025-05-17 13:25] VITALS: BP 119/53; PULSE 74; O2SAT 99
[2025-05-17 13:46] LABS: ALT (SGPT) 21 U/L (0-50); AST (SGOT) 21 U/L (17-59); Albumin 4.3 g/dl (3.5-5.0); Alkaline Phosphatase 48 U/L (38-126); Blood Urea Nitrogen 42 mg/dl (9-20); Calcium 9.5 mg/dl (8.4-10.2); Carbon Dioxide 21 mmol/L (22-30); Chloride 108 mmol/L (98-107); Estimated Creatinine Clearance 52 ml/min; Glucose 192 mg/dl (70-99); Potassium 5.3 mmol/L (3.5-5.1); Sodium 138 mmol/L (135-145); Total Protein 6.9 g/dl (6.3-8.2); eGFR 54.85
--- NOTE | 2025-05-17 14:20 | W.PN.UPDATE ---
Update Note
Progress Note Update
This is an addendum to H&P written by Carrie Middleton on 05/17/2025. Patient seen and examined independently with PA.
79-year-old male past medical history of CVA, CAD status post stents/CABG, ischemic cardiomyopathy, severe aortic stenosis status post TAVR in 2017, right bundle branch block, hyponatremia, type 2 diabetes, CKD 3, hypertension, hyperlipidemia,
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 Did not get up from chair and slid onto the floor. Recently hospitalized at [facility] after a fall. Complains of generalized
weakness with residual left leg weakness after prior CVA.
Vital signs normal. Slight lower extremity swelling bilterally.
Labs show potassium 5.3
Patient with chronic ambulatory dysfunction and generalized weakness and recent fall. Patient with mild hyperkalemia secondary to lisinopril/spironolactone. Hold Lisinopril/spironolactone. Recheck BMP in 4 days. PT/OT and case management
consulted. Patient would benefit from SNF.
--- NOTE | 2025-05-17 14:23 | CON.HOSP ---
Consultation
-
Date/Time Consultation Requested: May 17, 2025 @ 1:47PM
Date/Time Consultation Performed: May 17, 2025 @ 2:15PM
Requesting Provider: Dr. Renae Mei
Performing Provider: Carrie Jarvis PA-C / Dr. Fanta Carranza
Reason for Consultation: Weakness
Family Physician
-
Family Physician: Holly Serrato
Chief Complaint
-
Weakness
History of Present Illness
Patient is an 80 y/o male past medical history of CAD, DM, HTN and CKD who presents with weakness. Patient reports he slid off a chair while trying to get this morning resulting a fall. Patient reports he was hospitalized at [facility] from
to Wednesday and was set up to have home physical therapy but it has yet to start. He reports chronic left lower weakness following a prior CVA, but states he overall feels weak. Patient was evaluated by physicial therapy in the emergency
department who recommends group home facility.
Medical History
Past Medical History
Additional Past Medical History:
Coronary Artery Disease s/p CABG and Stents
CVA
Severe Aortic Stenosis s/p TAVR
Diabetes Mellitus, Type II
Essential Hypertension
Hyperlipidemia
CKD Stage III
Blindness secondary to Macular Degeneration
Additional Past Surgical History:
CABG
TAVR
Multiple Back Surgeries with Hardware
Appendectomy
Cholecystectomy
Social History
Tobacco: Non-smoker
Alcohol: None
Family History
Family History: Reviewed & Not Pertinent
Allergies / Home Medications
Allergies reflects when Allergies were last updated in [facility].
Home Medications with original date entered in [facility]
Allergy/Medication List:
Allergies
Allergy/AdvReac Type Severity Reaction Status Date / Time
codeine Allergy Nausea Verified 11/08/24 09:05
Neuromuscular Blockers, AdvReac Unknown Unknown Verified 11/08/24 09:05
Steroidal
Home Medications
aspirin 81 mg tablet,delayed release 81 mg PO DAILY Blood clot prevention/tx 07/28/20
isosorbide mononitrate 30 mg tablet,extended release 24 hr 30 mg PO BID Heart disease/condition 07/28/20
lisinopril 5 mg tablet 5 mg PO DAILY Blood pressure 07/28/20
clopidogrel 75 mg tablet (Plavix) 75 mg PO DAILY #30 tabs 08/24/23
atorvastatin 80 mg tablet (Lipitor) 80 mg PO QPM 11/08/24
famotidine 40 mg tablet (Pepcid) 40 mg PO HS 11/08/24
metoprolol succinate 25 mg tablet,extended release 24 hr 25 mg PO DAILY 11/08/24
spironolactone 50 mg tablet 50 mg PO DAILY Fluid retention/Swelling 11/08/24
vitamins A,C,B-znsj-sondur 2,148 mcg-113 mg-45 mg-17.4 mg tablet (PreserVision AREDS) 1 tab PO DAILY 11/08/24
amlodipine 2.5 mg tablet (Norvasc) 2.5 mg PO DAILY 05/17/25
gabapentin 300 mg capsule 300 mg PO HS 05/17/25
insulin NPH isoph U-100 human 100 unit/mL (3 mL) subcutaneous pen (Novolin N FlexPen) 30 unit SC BID 05/17/25
magnesium oxide 500 mg PO HS 05/17/25
naproxen sodium 220 mg tablet (Aleve) 220 mg PO BIDPRN PRN mild pain 05/17/25
Review of Systems
-
A 12 point Review of Systems was completed except as noted: Yes
Constitutional: Denies Fever or Chills
Respiratory: Denies Cough or Trouble Breathing
Cardiac: Denies Chest Pain or Palpitations
Abdomen/GI: Denies Abdominal Pain, Nausea, Vomiting or Diarrhea
: Denies Dysuria
Physical Exam
Vital Signs
Vital Signs
Temp Pulse Resp BP Pulse Ox
98.3 F 69 18 119/53 99
05/17/25 11:05 05/17/25 13:54 05/17/25 13:30 05/17/25 13:05 05/17/25 13:05
Physical Exam
General: Well Developed, Well Nourished and No Apparent Distress
HEENT: Normocephalic and Anicteric
Respiratory: Clear and Non Labored Respirations
Cardiac: S1/S2 and Regular Rhythm
GI: Soft and Non Tender
Genito-urinary: Clear Urine (Noted in urinal at bedside)
Musculoskeletal: No Clubbing, No Cyanosis and Edema (+1 pitting edema which patient reports is chronic)
Skin: Warm and Dry
Neuro: Awake, Alert, Oriented and No Motor Deficits
Psych: Calm
Laboratory Results
-
Laboratory Results
05/17/25 13:05
05/17/25 13:05
Total Bilirubin 0.7 mg/dl (0.2-1.3) 05/17/25 13:05
AST 21 U/L (17-59) 05/17/25 13:05
ALT 21 U/L (0-50) 05/17/25 13:05
Alkaline Phosphatase 48 U/L (38-126) 05/17/25 13:05
Data Reviewed
-
Lab Data: Labs Reviewed
Impression / Plan
-
Ambulatory Dysfunction secondary to Generalized Weakness
-Patient evaluated by PT in the ED who recommends SNF
-Agree that patient would benefit from SNF for continued physical therapy
Hyperkalemia, mild
-Recommend holding lisinopril and spironolactone
-Recommend rechecking BMP on WednesdayMay 21
Coronary Artery Disease s/p CABG and Stents
CVA with Residual LLE Weakness
-Continue aspirin and Plavix
-Continue isosorbide
Diabetes Mellitus, Type II
-Continue Novolin N
Essential Hypertension
-Lisinopril and spironolactone on hold as above
-Continue isosorbide
Hyperlipidemia
-Continue atorvastatin
CKD Stage III
-Creatinine at baseline
Hx Severe Aortic Stenosis s/p TAVR
--- NOTE | 2025-05-17 14:24 | CM ---
Addendum entered by Vicenta Henry 05/17/25 14:46:
[facility] waiver approved-faxed to [facility]
Original Note:
Met with patient and
IA completed
CM consult completed
PT rec SNF
tt [employer] liaison - patient qualifies for [facility] waiver program
Discussed participating facilities
discussed with patient/ - agreeable with [facility]
spoke with Tari lemus at [facility] bed available today
Patient lives in 2 story home , ramp to enter
PLOF: Independent with walker
DME: Walker, wheelchair, electric scooter, shower chair
Denies insecurities
Has had [facility] in past, [facility] in past
PCP: Holly Serrato
Pharm[facility]
REPORT #: [id number]
FAX #: [phone]
Will give transportation forms to manager intensive care unit
[2025-05-17] MEDS: NSS 500 IV (15:11)
== END 2025-05-17 16:15 ==
LOC: EMR 10:58
PROVIDERS: EMERGENCY PHYSICIAN Emergency Medicine; FAMILY PHYSICIAN Family Medicine; OTHER PHYSICIAN Hospitalist
DX: R53.1 Weakness (principal); R26.2 Difficulty in walking, not elsewhere classified; W19.XXXA Unspecified fall, initial encounter; R79.89 Other specified abnormal findings of blood chemistry; I25.10 Atherosclerotic heart disease of native coronary artery without angina pectoris; I69.354 Hemiplegia and hemiparesis following cerebral infarction affecting left non-dominant side; E11.22 Type 2 diabetes mellitus with diabetic chronic kidney disease; I12.9 Hypertensive chronic kidney disease with stage 1 through stage 4 chronic kidney disease, or unspecified chronic kidney disease; N18.30 Chronic kidney disease, stage 3 unspecified; E78.00 Pure hypercholesterolemia, unspecified; E87.5 Hyperkalemia; I35.0 Nonrheumatic aortic (valve) stenosis; I25.5 Ischemic cardiomyopathy; I45.10 Unspecified right bundle-branch block; H35.30 Unspecified macular degeneration; I25.2 Old myocardial infarction; Z95.1 Presence of aortocoronary bypass graft; Z95.5 Presence of coronary angioplasty implant and graft; Z95.2 Presence of prosthetic heart valve; Z86.0100 Personal history of colon polyps, unspecified; Z79.02 Long term (current) use of antithrombotics/antiplatelets; Z79.82 Long term (current) use of aspirin; Z79.899 Other long term (current) drug therapy; Z79.4 Long term (current) use of insulin; Z90.49 Acquired absence of other specified parts of digestive tract; Z88.5 Allergy status to narcotic agent; Z88.8 Allergy status to other drugs, medicaments and biological substances
CPT/HCPCS: 99284; 80053; 85025; 93005

== ENCOUNTER 2025-07-06 22:25 | Observation (INO) | payer MEDICARE, OTHER, SELFPAY ==
[2025-07-06 14:16] VITALS: BP 109/62
[2025-07-06 14:32] LABS: Hematocrit 31.3 % (39.0-52.0); Hemoglobin 10.2 g/dL (13.0-18.0); Mean Corp Hgb Conc. 32.6 g/dL (33.0-37.0); Mean Corpuscular Volume 92.3 fL (80.0-94.0); Nucleated Red Blood Cells % 0 % (-); Platelet Count 225 10^3/uL (130-400); Red Cell Dist. Width 12.9 % (11.5-14.5)
[2025-07-06 14:50] LABS: ALT (SGPT) 17 U/L (0-50); AST (SGOT) 27 U/L (17-59); Albumin 4.2 g/dl (3.5-5.0); Alkaline Phosphatase 58 U/L (38-126); Blood Urea Nitrogen 28 mg/dl (9-20); Calcium 9.7 mg/dl (8.4-10.2); Carbon Dioxide 25 mmol/L (22-30); Chloride 106 mmol/L (98-107); Glucose 85 mg/dl (70-99); Potassium 4.6 mmol/L (3.5-5.1); Sodium 139 mmol/L (135-145); Total Protein 6.8 g/dl (6.3-8.2); eGFR 46.19
--- NOTE | 2025-07-06 18:37 | ED.GENMED ---
History of Present Illness
<Gia Iniguez PA-C - Last Filed: 07/06/25 22:21>
General
Chief Complaint: Weakness
Source: patient
Exam Limitations: none
Time Seen by Provider: 07/06/25 18:35
History of Present Illness
History of Present Illness:
80yoM with a history of coronary artery disease, prior CVA with baseline left-sided weakness, hypertension, hyperlipidemia, and insulin-dependent diabetes presenting for evaluation of generalized weakness. Patient was discharged from short-term
rehab about 2 weeks ago. He was able to walk up 4-5 steps while at rehab. He has had home physical therapy 3 times since being discharged from the facility. Home nursing and physical therapy today and patient was unable to stand or get out of his
chair. He was told to go to the ED for evaluation. He has had 2 falls in the past 2 weeks, last fall being about 4 days ago. He denies any head trauma or any injuries from the falls. He states he is otherwise feeling well. He denies any chest
pain, shortness of breath, fevers, vomiting, diarrhea, dysuria.
Past History
<Gia Iniguez PA-C - Last Filed: 07/06/25 22:21>
Past History
ED Past Medical History: CAD, HTN, Hypercholesterolemia, IDDM, Valvular disease (h/o TAVR history of 10 of) and Other (colon Polyps GI bleeding)
ED Past Surgical History: Appendectomy, Cardiac (CABG, 2 stents, NSTEMI, Valve replaced) and Cholecystectomy
Social History
Tobacco: Non-smoker
Alcohol: None
Drug: None
Personal:
Living: with family
Employment: Retired
Family History
Family History: Other
Phy Exam
<Gia Iniguez PA-C - Last Filed: 07/06/25 22:21>
General Physical Exam
General Presentation: well appearing and no apparent distress
General Skin: warm and dry
General Habitus: normal and elderly
General Mental: alert
ENT Exam
ENT Exam: normocephalic
Cardiovascular Exam
Cardiovascular Exam: regular rate/rhythm
Pulmonary Exam
Pulmonary Exam: lungs clear, no respiratory distress, no rales, no crackles, no rhonchi and no wheezing
Neurological Exam
Neurological Exam: alert and other (3/5 strength in LLE. 5/5 strength in all other extremities)
[place]ica Coma Scale
Eye Opening: Spontaneous
Verbal Response: Oriented
Motor Response: Obeys Commands
GCS Total Score: 15
Skin Exam
Skin Exam: normal color and warm/dry
Psychiatric Exam
Psychiatric Exam: normal mood/affect
<Karel Ibanez MD - Last Filed: 07/06/25 19:05>
[place] Coma Scale
GCS Total Score: 15
Course
<Gia Iniguez PA-C - Last Filed: 07/06/25 22:21>
Orders/Labs/Results
Orders:
Orders
07/06/25 14:19
Electrocardiogram (*1) Urgent
Reason for Study: Fatigue / Weakness
EKG- Treatment ONCE
07/06/25 14:24
Complete Blood Count/With Diff Urgent
Comprehensive Metabolic Panel Urgent
07/06/25 18:52
Urinalysis Reflex To Culture Urgent
07/06/25 19:03
CT Head W/o Iv Contrast Urgent
Comment:
Reason For Exam: weakness
07/06/25 21:57
Admit/Transfer Patient As Directed
Co-Sign Provider:
Level of Care: Observation services
Assign to:: Medical/Surgical
Physician / Group: kash
Diagnosis: ambulatory dysfunction
PRN Pain Medication Management As Directed
May give lesser potent ordered pain med per pt: Yes
preference::
Protocol:: Medication orders for pain may be administered in a
manner that supports deferring to patient preference
when the pt is:
- Requesting an ordered lesser potent pain medication.
Least to most potent pain medications are defined
as: acetaminophen < NSAID < tramadol < opioids
(morphine, oxycodone, hydromorphone).
- Requesting a lesser dose of the same medication IF
ORDERED.
- Requesting a less intrusive route of administration
if both routes are prescribed by the provider (PO <
IV).
07/06/25 21:58
Code Status As Directed
Resuscitation Status: Do not resuscitate
Reached after discussion with pt or family/Healthcare POA: Yes
07/06/25 21:59
DNR Bracelet Application ONCE
Abnormal Lab Results
07/06/25
14:24
RBC 3.39 L 10^6/uL
(4.70-6.10)
Hgb 10.2 L g/dL
(13.0-18.0)
Hct 31.3 L %
(39.0-52.0)
MCHC 32.6 L g/dL
(33.0-37.0)
Absolute Neuts (auto) 7.2 H 10^3/uL
(1.4-6.5)
Absolute Monos (auto) 0.9 H 10^3/uL
(0.1-0.6)
Lymphocytes % 20.1 L %
(20.5-51.1)
BUN 28 H mg/dl
(9-20)
Creatinine 1.5 H mg/dL
(0.7-1.3)
07/06/25 14:24
07/06/25 14:24
Vital Signs
Initial and Last Documented VS:
Initial Vital Signs
Temp Pulse Resp BP Pulse Ox
98.2 F 74 16 109/62 98
07/06/25 14:16 07/06/25 14:16 07/06/25 14:16 07/06/25 14:16 07/06/25 14:16
Last Documented Vital Signs
Temp Pulse Resp BP Pulse Ox
98.2 F 74 16 109/62 98
07/06/25 14:16 07/06/25 14:16 07/06/25 14:16 07/06/25 14:16 07/06/25 18:38
<Karel Ibanez MD - Last Filed: 07/06/25 19:05>
Orders/Labs/Results
Orders:
Orders
07/06/25 14:19
Electrocardiogram (*1) Urgent
Reason for Study: Fatigue / Weakness
EKG- Treatment ONCE
07/06/25 14:24
Complete Blood Count/With Diff Urgent
Comprehensive Metabolic Panel Urgent
07/06/25 18:52
Urinalysis Reflex To Culture Urgent
07/06/25 19:03
CT Head W/o Iv Contrast Urgent
Comment:
Reason For Exam: weakness
07/06/25 21:57
Admit/Transfer Patient As Directed
Co-Sign Provider:
Level of Care: Observation services
Assign to:: Medical/Surgical
Physician / Group: kash
Diagnosis: ambulatory dysfunction
PRN Pain Medication Management As Directed
May give lesser potent ordered pain med per pt: Yes
preference::
Protocol:: Medication orders for pain may be administered in a
manner that supports deferring to patient preference
when the pt is:
- Requesting an ordered lesser potent pain medication.
Least to most potent pain medications are defined
as: acetaminophen < NSAID < tramadol < opioids
(morphine, oxycodone, hydromorphone).
- Requesting a lesser dose of the same medication IF
ORDERED.
- Requesting a less intrusive route of administration
if both routes are prescribed by the provider (PO <
IV).
07/06/25 21:58
Code Status As Directed
Resuscitation Status: Do not resuscitate
Reached after discussion with pt or family/Healthcare POA: Yes
07/06/25 21:59
DNR Bracelet Application ONCE
Abnormal Lab Results
07/06/25
14:24
RBC 3.39 L 10^6/uL
(4.70-6.10)
Hgb 10.2 L g/dL
(13.0-18.0)
Hct 31.3 L %
(39.0-52.0)
MCHC 32.6 L g/dL
(33.0-37.0)
Absolute Neuts (auto) 7.2 H 10^3/uL
(1.4-6.5)
Absolute Monos (auto) 0.9 H 10^3/uL
(0.1-0.6)
Lymphocytes % 20.1 L %
(20.5-51.1)
BUN 28 H mg/dl
(9-20)
Creatinine 1.5 H mg/dL
(0.7-1.3)
07/06/25 14:24
07/06/25 14:24
Vital Signs
Initial and Last Documented VS:
Initial Vital Signs
Temp Pulse Resp BP Pulse Ox
98.2 F 74 16 109/62 98
07/06/25 14:16 07/06/25 14:16 07/06/25 14:16 07/06/25 14:16 07/06/25 14:16
Last Documented Vital Signs
Temp Pulse Resp BP Pulse Ox
98.2 F 74 16 109/62 98
07/06/25 14:16 07/06/25 14:16 07/06/25 14:16 07/06/25 14:16 07/06/25 18:38
<Gia Iniguez PA-C - Last Filed: 07/06/25 22:21>
MDM/Problems Addressed
Differential Diagnosis Includes:
80yoM here for weakness. He was unable to get out of his chair with home PT today so was sent to the ED. Just discharged from rehab 2 weeks ago and has fallen 2x since then. Patient with no other complaints. VSS. LLE weakness noted which is chronic
from prior CVA. Differential diagnosis includes but is not limited to: failure to thrive, ambulatory dysfunction, UTI, less likely new CVA
Initial ED plan: Workup initiated in triage. Creatinine is 1.5, mildly up from baseline of 1.3. Remainder of labs unremarkable. Will check UA and CT head.
<Gia Iniguez PA-C - Last Filed: 07/06/25 22:21>
*Pulse Oximetry
SaO2: 98
Oxygen Mode of Delivery: Room air
Patient hypoxic: no
*EKG
Interpreted by ED Provider?: Yes
EKG Intrepretation Date: 07/06/25
Heart Rate: 74
Rate: normal
Rhythm: sinus
[place]: left axis deviation
QRS Pattern: right bundle branch block
Ischemia: non-specific ST changes (unchanged from EKG on 05/17/25 )
*Critical Care Note
Total Time (30-74mins, 75-104mins- exclusive of procedures): Not Applicable
<Gia Iniguez PA-C - Last Filed: 07/06/25 22:21>
Update Note
Update Note:
CT head is negative for acute findings. Patient unable to ambulate with nursing staff. Will admit for PT/OT evaluation and likely rehab placement.
ED Attending Note
<Gia Iniguez PA-C - Last Filed: 07/06/25 22:21>
-
Portions of this chart may have been created with voice recognition software.� Occasional wrong word or��sound alike� substitutions may have occurred due to the inherent limitations of voice recognition software.
<Karel Ibanez MD - Last Filed: 07/06/25 19:05>
ED Attending Note
Patient seen and examined by attending physician: Yes
I performed the substantive portion of visit, reviewed & personally made and approve the management plan that is documented in note by myself or MERISSA.: Yes
ED Attending Note:
Patient presents with increased weakness. At rehab today they could not get him to get up and down from a chair. Apparently there may be some ADL issues at home. Lives with his . Uses a walker. Patient has no acute complaints at rest.
On exam patient is nontoxic in no distress. Warm and dry. Perfusing well. No respiratory distress. Regular rate and rhythm. Abdomen nontender. Speech is normal. Cranial nerves II through XII intact. Upper extremity has good strength. He has
mild weakness to the left lower extremity. Can lift against gravity but not as well.
Impression is old left-sided CVA. Some mild progression and weakness. Currently at home getting rehab. Question of whether there is an acute event which is unlikely versus ADL issues. Workup in progress
Discharge Plan
Departure
Patient Disposition: Admit
Date of Disposition: 07/06/25
Time of Disposition: 20:43
Presentation/result/management discussed w/ accepting MD/DO: Hospitalist
Discharge Problem:
Ambulatory dysfunction
Prescriptions:
No Action
isosorbide mononitrate 30 MG tablet extended release 24 hr
30 mg PO BID
lisinopril 5 MG tablet
5 mg PO DAILY
clopidogrel [Plavix] 75 MG tablet
75 mg PO DAILY Qty: 30 0RF
atorvastatin [Lipitor] 80 mg Tablet
80 mg PO DAILY
famotidine [Pepcid] 40 mg Tablet
40 mg PO DAILY
metoprolol succinate 25 mg Tablet Extended Release 24 Hr
25 mg PO DAILY
spironolactone 50 MG tablet
50 mg PO DAILY
gabapentin 300 mg capsule
300 mg PO HS
Novolin N FlexPen 100 unit/mL (3 mL) Insulin Pen
30 unit SC BID
magnesium oxide 500 mg magnesium tablet
400 mg PO HS
amlodipine [Norvasc] 2.5 mg Tablet
2.5 mg PO DAILY
Referrals:
Holly Serrato MD [Family Provider, Family Practice]
Interventions
Interventions:
*Risk Screen - Suicide Last Done: 07/06/25 14:16
*General Assessment Last Done: 07/06/25 21:15
*Neglect/Abuse Screening Last Done: 07/06/25 14:16
*ED- Fall Risk Assessment Last Done: 07/06/25 21:39
*ED COVID-19 Vaccine History Last Done: 07/06/25 21:39
ED- Cardiac Assessment Last Done: 07/06/25 20:26
ED- Neurological Assessment Last Done: 07/06/25 20:26
ED- Pulmonary Assessment Last Done: 07/06/25 20:27
Discharge Date and Time
Print Language: THAI
--- NOTE | 2025-07-06 21:31 | HPS.HSE ---
Family Physician
-
Family Physician: Holly Serrato
Chief Complaint
-
unable to walk
History of Present Illness
80yoM with a history of coronary artery disease, prior CVA with baseline left-sided weakness, hypertension, hyperlipidemia, and insulin-dependent diabetes presenting for evaluation of generalized weakness. Patient was discharged from short-term
rehab about 2 weeks ago. He was doing fine at th rehab. He has had home physical therapy 3 times since being discharged from the facility. he was evaluated by Home nursing and physical therapy today and patient was unable to stand or get out of
his chair within the specific time. he was loosing his balance and He has had 2 falls in the past 2 weeks He denies any head trauma or any injuries from the falls. denied CARBAJAL, dizzy or syncope.denied fever, chills, chest pain, sob. denied abdominal
pain,nv,d,. denied dysuria or hematuria.
Medical History
Past Medical History
Past Medical History: Reports Other
Additional Past Medical History:
CKD stage IIIa, anemia, coronary artery disease, GERD, dyslipidemia, nephropathy, type 2 diabetes, hypertension, osteoarthritis, coronary artery disease, coronary artery disease, neuropathy, macular degeneration
Past Surgical History: Reports Other
Additional Past Surgical History:
Lumbar laminectomy, L4-L5 fusion, cardiac stents, CABG
Social History
Tobacco: Non-smoker
Alcohol: None
Drug: None
Personal:
Living: With Family
Family History
Family History: Not pertinent
Allergies / Home Medications
Allergies reflects when Allergies were last updated in [employer].
Home Medications with original date entered in [employer]
Allergy/Medication List:
Allergies
Allergy/AdvReac Type Severity Reaction Status Date / Time
codeine Allergy Nausea Verified 07/06/25 14:18
Neuromuscular Blockers, AdvReac Unknown Unknown Verified 07/06/25 14:18
Steroidal
Home Medications
isosorbide mononitrate 30 mg tablet,extended release 24 hr 30 mg PO BID Heart disease/condition 07/28/20
lisinopril 5 mg tablet 5 mg PO DAILY Blood pressure 07/28/20
clopidogrel 75 mg tablet (Plavix) 75 mg PO DAILY #30 tabs 08/24/23
atorvastatin 80 mg tablet (Lipitor) 80 mg PO DAILY 11/08/24
famotidine 40 mg tablet (Pepcid) 40 mg PO DAILY 11/08/24
metoprolol succinate 25 mg tablet,extended release 24 hr 25 mg PO DAILY 11/08/24
spironolactone 50 mg tablet 50 mg PO DAILY Fluid retention/Swelling 11/08/24
amlodipine 2.5 mg tablet (Norvasc) 2.5 mg PO DAILY 05/17/25
gabapentin 300 mg capsule 300 mg PO HS 05/17/25
insulin NPH isoph U-100 human 100 unit/mL (3 mL) subcutaneous pen (Novolin N FlexPen) 30 unit SC BID 05/17/25
magnesium oxide 400 mg PO HS 05/17/25
Review of Systems
-
Constitutional: Reports No Symptoms
EENT: Reports No Symptoms
Respiratory: Reports No Symptoms
Cardiac: Reports No Symptoms
Abdomen/GI: Reports No Symptoms
: Reports No Symptoms
Musculoskeletal: Reports No Symptoms
Skin: Reports No Symptoms
Neurological: Reports No Symptoms
Endocrine: Reports No Symptoms
Hematologic/Lymphatic: Reports No Symptoms
Psych: Reports No Symptoms
Physical Exam
Vital Signs
Vital Signs
Temp Pulse Resp BP Pulse Ox
98.2 F 74 16 109/62 98
07/06/25 14:16 07/06/25 14:16 07/06/25 14:16 07/06/25 14:16 07/06/25 18:38
Physical Exam
General: Well Developed, Well Nourished and No Apparent Distress
HEENT: NormoCephalic, Moist mucous membranes and Atraumatic
Respiratory: Clear
Cardiac: S1/S2 and Regular Rhythm; No Murmur or Rub
GI: Soft, Non Tender, Non Distended and Normal Bowel Sounds; No Organomegaly
Rectal: Deferred by Provider
Musculoskeletal: No Clubbing, No Cyanosis and No Edema
Skin: No Rash
Neuro: AO x 3 and Nonfocal/grossly intact
Psych: Calm
Laboratory Results
-
07/06/25 14:24
07/06/25 14:24
Laboratory Results
Total Bilirubin 0.6 mg/dl (0.2-1.3) 07/06/25 14:24
AST 27 U/L (17-59) 07/06/25 14:24
ALT 17 U/L (0-50) 07/06/25 14:24
Alkaline Phosphatase 58 U/L (38-126) 07/06/25 14:24
Data Reviewed
-
Lab Data: Labs Reviewed by me
Impression/Plan
-
# Ambulatory dysfunction
#chronic CVA with left-sided weakness
- PT/OT
- Case management consult for placement
- Head CT with no acute findings
# Anemia of chronic disease
- Hemoglobin stable at 10.2, no active bleeding
- Continue to monitor
#CKD stage 3a
- Creatinine 1.5
- Continue to monitor BMP
#History of CAD/NSTEMI status post stents
#CAD status post CABG
- Plavix continue
-Continue isosorbide nitrate
-Continue metoprolol
-Continue spironolactone
#Severe aortic stenosis status post TAVR in 2017
#Ischemic cardiomyopathy
-EF of 45%
-Continue spironolactone
#History of CVA a year ago at [place]
#History of right bundle branch block
#Type 2 diabetes mellitus
- Sliding scale
- CHO diet
-Continue Novolin 30 units 3 times daily
#Essential hypertension
-Continue lisinopril
#Hyperlipidemia
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
#GERD
-Continue famotidine
#Obesity
DNR
DVT prophylaxis�heparin
--- NOTE | 2025-07-06 21:45 | W.PN.UPDATE ---
Update Note
Progress Note Update
Patient seen in conjunction with nurse practitioner, I agree with the findings on history and physical and I concur with assessment and plan.
Briefly, this is a 80-year-old with past medical history significant for CAD status post CABG and stenting, aortic stenosis status post TAVR, hypertension, hyperlipidemia, insulin-dependent diabetes, recent CVA with baseline left-sided weakness and
recently discharged from short-term rehab about 2 weeks ago where was able to walk about 45 steps now returns to the emergency department for progressive weakness.
He has physical therapy 3 times since discharge from facility, he was seen by home nursing and physical therapy today and was unable to stand to get out of his chair. Was sent to the emergency department for evaluation.
He has had 2 falls in the past 2 weeks and last fall being about 4 days ago. Denies any head strike. He otherwise denies any other symptoms including urinary symptoms vomiting diarrhea melena or hematochezia cough or shortness of breath fevers or
chills.
Patient reports that he generally just collapsed to the floor with weakness without lightheadedness or dizziness palpitations chest pain no nausea vomiting or diaphoresis. He has ongoing weakness in his left lower extremity which is currently a 3
out of 5 strength. He denies any other weakness anywhere else.
In the emergency department he was afebrile, blood pressure was 109/60 with a pulse of 74 and was satting 98% on room air. ECG shows a normal sinus rhythm at a rate of 74 with right bundle branch unchanged from prior. CT of the head shows no acute
intracranial process.
CBC was unremarkable. Electrolytes BUN/creatinine were in his normal range.
Patient was evaluated in the ED without any focal findings but was unable to ambulate.
Assessment and plan
Ambulatory dysfunction -no focal neurological deficits. No signs of acute infection will admit for likely short-term placement after failure of home PT
- Admit to MedSurg observation
- Check COVID/flu
- Check orthostatic vital signs, if orthostatic will give IV fluids
- PT consult
- Case management
CVA -residual left-sided weakness
- Continue aspirin statin and Plavix
Hypertension -stable-continue home antihypertensives with hold parameters
DVT prophylaxis -heparin subcu
CODE STATUS - full code
[2025-07-06 21:54] VITALS: BMI 30.8
[2025-07-06 23:56] VITALS: BMI 30.3
[2025-07-07 00:01] LABS: Glucose - Point of Care 114 mg/dl (70-99)
[2025-07-07 00:21] VITALS: BP 142/72
[2025-07-07] MEDS: MAGNESIUM OXIDE 400 MG PO ×2 (00:25→22:12)
[2025-07-07] MEDS: NEURONTIN 300 MG PO ×2 (00:25→22:12)
[2025-07-07 00:51] LABS: Urine Character Slightly Cloudy (Clear)
[2025-07-07 01:01] LABS: Urine Red Blood Cell 0-2 /HPF (0-2); Urine Squamous Cell 0-2 /LPF (Few); Urine White Cell >100 /HPF (0-5)
[2025-07-07 06:57] LABS: Hematocrit 31.6 % (39.0-52.0); Hemoglobin 10.5 g/dL (13.0-18.0); Mean Corp Hgb Conc. 33.2 g/dL (33.0-37.0); Mean Corpuscular Volume 92.1 fL (80.0-94.0); Platelet Count 221 10^3/uL (130-400); Red Cell Dist. Width 12.7 % (11.5-14.5)
[2025-07-07 07:00] VITALS: BP 112/51
[2025-07-07 07:20] LABS: Blood Urea Nitrogen 23 mg/dl (9-20); Calcium 9.4 mg/dl (8.4-10.2); Carbon Dioxide 24 mmol/L (22-30); Chloride 105 mmol/L (98-107); Estimated Creatinine Clearance 47 ml/min; Glucose 97 mg/dl (70-99); Potassium 4.7 mmol/L (3.5-5.1); Sodium 138 mmol/L (135-145); eGFR 50.18
--- NOTE | 2025-07-07 07:56 | W.PN.HOSP.TC ---
Addendum entered and electronically signed by Torres Goodson MD 07/07/25 12:12:
Patient requires SNF level of care
Original Note:
Today's Communication/Plan
-
d/c
Assessment / Plan
Assessment / Plan
Gen: NAD, Awake and alert
Eyes: EOMI, PERRLA, no scleral icterus.
Neck: supple.
CV: RRR, +S1/S2, no m/r/g.
Resp: CTAB, no rales, wheezes, or rhonchi.
Abd: +BS, soft, NT, ND
Skin: No rashes.
Neuro: CN 2-12 intact, LLE 2/5
Psych: Normal mood and affect.
Ambulatory dysfunction
-chronic CVA (1 year ago) with L-sided weakness, cont Plavix/statin
-PT/OT/CM
Other problems:
Anemia of chronic disease: Hb stable
CKD3a
CAD (h/o stents and CABG): cont BB/Plavix
Chronic HFrEF: cont BB/Imdur/Aldactone
Severe s/p TAVR in 2017
RBBB
DM2: cont NPH/SSI/accuchecks
Essential HTN: cont Norvasc/ACEi/BB/Aldactone/Imdur
HLD: cont statin
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
GERD: cont Pepcid
Obesity due to excess calories
DNR/heparin
Medically cleared for discharge. Case management aware (as of 803 today).
Anticipated Discharge: Today
Subjective/Interval History
-
Date of Service: July 07, 2025
No new complaints.
Objective Data
-
Labs:
Laboratory Results
07/07/25
06:17
WBC 11.9 H
Hgb 10.5 L
Hct 31.6 L
Plt Count 221
Sodium 138
Potassium 4.7
Chloride 105
Carbon Dioxide 24
BUN 23 H
Creatinine 1.4 H
Glucose 97
Calcium 9.4
Vital Signs:
Vital Signs
Temp Pulse Resp BP Pulse Ox
98.3 F 86 18 142/72 97
07/07/25 00:21 07/07/25 00:21 07/07/25 00:21 07/07/25 00:21 07/07/25 00:21
I&O
07/06/25 07/07/25 07/08/25
06:59 06:59 06:59
Intake Total 480 / 480
Output Total 1000 / 1000
Balance -520 / -520
[2025-07-07 08:09] LABS: Glucose - Point of Care 114 mg/dl (70-99)
[2025-07-07] MEDS: NOVOLOG FLEXPEN-LOW RESISTANCE SC (08:20)
[2025-07-07 09:25] VITALS: BP 107/71; PULSE 99
[2025-07-07 09:29] LABS: Glycohemoglobin (HgbA1c) 6.6 % (4.0-5.6)
[2025-07-07] MEDS: PEPCID 40 MG PO (09:44)
[2025-07-07] MEDS: NORVASC 2.5 MG PO (09:45)
[2025-07-07] MEDS: TOPROL XL 25 MG PO (09:45)
[2025-07-07] MEDS: PLAVIX 75 MG PO (09:45)
[2025-07-07] MEDS: LIPITOR 80 MG PO (09:45)
[2025-07-07] MEDS: ALDACTONE 50 MG PO (09:45)
[2025-07-07] MEDS: HEPARIN 5000 UNITS SC ×2 (09:46→20:14)
[2025-07-07] MEDS: ZESTRIL 5 MG PO (09:46)
[2025-07-07] MEDS: IMDUR (EXTENDED RELEASE) 30 MG PO ×2 (09:46→20:14)
[2025-07-07] MEDS: HUMULIN N KWIKPEN 30 UNITS SC ×2 (09:46→20:14)
[2025-07-07 12:18] LABS: Glucose - Point of Care 265 mg/dl (70-99)
--- NOTE | 2025-07-07 12:26 | CM ---
CM following re: discharge planning.
Reviewed pt's chart, met with pt. Pt's spouse and son Kael at bedside.
Pt is an 80 year old male, admitted with OBS status and primary dx of Ambulatory dysfunction. PMH: coronary artery disease, prior CVA with baseline left-sided weakness, hypertension, hyperlipidemia, and insulin-dependent diabetes. OBS status
explained to the pt, pt declined to sign, has a copy.
Pt reports he lives with spouse 2SH, 2 steps to enter and also has a ramp. has 3 supportive children. Pt reports he became w/c bound, has a hospital bed, has a walker. Pt reports he went to [facility] on 05/17/25, was discharged home on 06/24/25 with [facility]. Pt's son stated that pt fell at home 2 times and pt's spouse is not able to care for him and pt's children are not able to help also. Pt's son requested pt can return back to [facility] and he will be working with his parents to place both of them in
an HALF-WAY personal care after the completion of a short term rehab. pt;s son made it very clear that pt will not be able to return back home. Pt's spouse went to [facility] and at the same time she expressed her agreement with son's comment. Pt's son
stated that around 3 years ago he was able to arrange to move both his father and mother to [facility] but both pt and his spouse refused to go. both pt and his spouse expressed their understanding of the situation and expressed their
agreement with son's plan. Pt and his spouse stated they will sell the house to cover the cost for an HALF-WAY.
PT and POT evaluations noted - SNF level of care recommended.
A referral to [facility] made, spoke to liaison Tari and she confirmed that they do have a bed available and ACO approval requested.
note regarding SNF level of care requested.
From previous admission review, pt is a member of [facility]. CM called [facility] , they work today till noon, left a message regarding waiver 3 days medicare required hospital stay and to get an approval to place the pt to [facility]
for a short term and a terminal make up operator, care.
PCP: Holly Serrato
Pharmacy: [facility]
D/C plan: [facility]. Awaiting for [employer] waiver approval.
CM will follow to assit pt with discharge to [facility]
[2025-07-07] MEDS: NOVOLOG FLEXPEN-LOW RESISTANCE 3 UNITS SC (13:14)
[2025-07-07 15:00] VITALS: BP 104/51
[2025-07-07 17:09] LABS: Glucose - Point of Care 206 mg/dl (70-99)
[2025-07-07] MEDS: NOVOLOG FLEXPEN-LOW RESISTANCE 2 UNITS SC (18:08)
[2025-07-07 20:24] LABS: Glucose - Point of Care 201 mg/dl (70-99)
[2025-07-07 20:27] VITALS: BP 107/63
[2025-07-07 23:32] VITALS: BP 122/56
[2025-07-08 06:45] LABS: Hematocrit 29.0 % (39.0-52.0); Hemoglobin 9.8 g/dL (13.0-18.0); Mean Corp Hgb Conc. 33.8 g/dL (33.0-37.0); Mean Corpuscular Volume 92.1 fL (80.0-94.0); Platelet Count 206 10^3/uL (130-400); Red Cell Dist. Width 12.8 % (11.5-14.5)
[2025-07-08 07:00] VITALS: BP 124/64
[2025-07-08 07:07] LABS: Blood Urea Nitrogen 33 mg/dl (9-20); Calcium 9.3 mg/dl (8.4-10.2); Carbon Dioxide 28 mmol/L (22-30); Chloride 106 mmol/L (98-107); Estimated Creatinine Clearance 41 ml/min; Glucose 104 mg/dl (70-99); Potassium 4.2 mmol/L (3.5-5.1); Sodium 137 mmol/L (135-145); eGFR 42.75
--- NOTE | 2025-07-08 08:28 | W.PN.HOSP.TC ---
Today's Communication/Plan
-
see plan
Assessment / Plan
Assessment / Plan
Gen: NAD, Awake and alert
Eyes: EOMI, PERRLA, no scleral icterus.
Neck: supple.
CV: remains RRR, +S1/S2, no m/r/g.
Resp: remains CTAB, no rales, wheezes, or rhonchi.
Abd: +BS, soft, NT, ND
Skin: No rashes.
Neuro: CN 2-12 intact, LLE 1/
Psych: Normal mood and affect.
Ambulatory dysfunction
-chronic CVA (1 year ago) with L-sided weakness, cont Plavix/statin
-PT/OT/CM
Other problems:
Anemia of chronic disease: Hb stable
CKD3a
CAD (h/o stents and CABG): cont BB/Plavix
Chronic HFrEF: cont BB/Imdur/Aldactone
Severe s/p TAVR in 2017
RBBB
DM2: cont NPH/SSI/accuchecks
Essential HTN: cont Norvasc/ACEi/BB/Aldactone/Imdur
HLD: cont statin
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
GERD: cont Pepcid
Obesity due to excess calories
DNR/heparin
Remains medically cleared for discharge. Case management aware (as 803 on 07/07/25).
Total time spent on d/c = 31 min. This included today's physical exam, progress note, review of laboratory and diagnostic data, preparation of discharge documents and prescriptions, and discussions about the pt's hospital course and discharge plan
with the patient and other medical collections representative involved in the patient's care.
Anticipated Discharge: Today
Subjective/Interval History
-
Date of Service: July 08, 2025
No new complaints.
Objective Data
-
Labs:
Laboratory Results
07/08/25
06:19
WBC 8.6
Hgb 9.8 L
Hct 29.0 L
Plt Count 206
Sodium 137
Potassium 4.2
Chloride 106
Carbon Dioxide 28
BUN 33 H
Creatinine 1.6 H
Glucose 104 H
Calcium 9.3
Vital Signs:
Vital Signs
Temp Pulse Resp BP Pulse Ox
97.4 F 76 17 122/56 100
07/07/25 23:32 07/07/25 23:32 07/07/25 23:32 07/07/25 23:32 07/07/25 23:32
I&O
07/07/25 07/08/25 07/09/25
06:59 06:59 06:59
Intake Total 480 / 480 990 / 990
Output Total 1000 / 1000 550 / 550
Balance -520 / -520 440 / 440
[2025-07-08 08:34] LABS: Glucose - Point of Care 118 mg/dl (70-99)
[2025-07-08] MEDS: ALDACTONE 50 MG PO (08:37)
[2025-07-08] MEDS: HEPARIN 5000 UNITS SC (08:37)
[2025-07-08] MEDS: NOVOLOG FLEXPEN-LOW RESISTANCE SC (08:37)
[2025-07-08] MEDS: NORVASC 2.5 MG PO (08:38)
[2025-07-08] MEDS: PEPCID 40 MG PO (08:38)
[2025-07-08] MEDS: TOPROL XL 25 MG PO (08:38)
[2025-07-08] MEDS: LIPITOR 80 MG PO (08:38)
[2025-07-08] MEDS: PLAVIX 75 MG PO (08:39)
[2025-07-08] MEDS: HUMULIN N KWIKPEN 30 UNITS SC (08:39)
[2025-07-08] MEDS: ZESTRIL 5 MG PO (08:39)
[2025-07-08] MEDS: IMDUR (EXTENDED RELEASE) 30 MG PO (08:39)
--- NOTE | 2025-07-08 10:59 | CM ---
Addendum entered by Cristian Whitney 07/08/25 11:52:
CM met with pt's spouse and her sister in pt's room and both pt and his spouse are aware of discharge time.
Original Note:
CM following re: discharge planning.
Reviewed pt's chart, met with pt and left a message to pt's spouse.
According to MD pt remains medically stable to be discharged. Pt remains OBS status.
CM spoke to [facility] casey saw operator Nora, waiver requested, pt';s clinical faxed to [facility] waiver program at [phone]. Nora confirmed that pt approved for 3 initial waiver days for SNF level of care at [facility] and she communicated it with [facility]
director of anesthesia services Taylor who confirmed that pt is accepted for admission today.
arranged ambulance transport BLS with shredder picker time 14:00. [facility]NC completed and left with .
[facility] nursing report: [phone]
Discharge instructions fax: [phone]
D/C plan: [facility]
[2025-07-08 12:16] LABS: Glucose - Point of Care 175 mg/dl (70-99)
[2025-07-08 12:20] VITALS: BP 117/63
[2025-07-08] MEDS: NOVOLOG FLEXPEN-LOW RESISTANCE 1 UNITS SC (12:32)
--- NOTE | 2025-07-08 12:51 | W.DCSUMMARY ---
Discharge Summary
Discharge Data
Date of Admission: 07/06/25
Date of Discharge: 07/08/25
-
Pending Results: No
Hospital Course
Primary diagnoses:
Ambulatory dysfunction
Secondary diagnoses:
h/o cerebrovascular accident with resulting left-sided weakness
Anemia of chronic disease
Chronic kidney disease 3a
Coronary artery disease (h/o stents and coronary artery bypass grafting)
Chronic heart failure with reduced ejection
Severe aortic stenosis s/p TAVR in 2017
Right bundle branch block
Type 2 diabetes mellitus
Essential hypertension
Hyperlipidemia
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
Gastroesophageal reflux disease
Obesity due to excess calories
Consultants:
None
Imaging:
CT brain: No acute intracranial abnormality.
Hospital course: 80-year-old male who presented with a chief complaint of 'unable to walk' as outlined in the H&P done on admission. The patient was admitted socially for placement. He was seen by physical therapy and Occupational Therapy. He was
discharged to half-way in medically stable condition.
Discharge Plan
-
Patient Disposition: Penitentiary[facility]SNF
Discharge Diagnosis/Procedures: Ambulatory dysfunction
Condition: Good
Diet: Diabetic, Carb Controlled
Activity: With assistance
Driving Restrictions: No driving
Referrals:
Holly Serrato MD [Family Provider, [facility]] - in less than 1 week
Prescriptions:
Continued
isosorbide mononitrate 30 MG tablet extended release 24 hr
30 mg PO BID
lisinopril 5 MG tablet
5 mg PO DAILY
clopidogrel [Plavix] 75 MG tablet
75 mg PO DAILY Qty: 30 0RF
atorvastatin [Lipitor] 80 mg Tablet
80 mg PO DAILY
famotidine [Pepcid] 40 mg Tablet
40 mg PO DAILY
metoprolol succinate 25 mg Tablet Extended Release 24 Hr
25 mg PO DAILY
spironolactone 50 MG tablet
50 mg PO DAILY
gabapentin 300 mg capsule
300 mg PO HS
Novolin N FlexPen 100 unit/mL (3 mL) Insulin Pen
30 unit SC BID
magnesium oxide 500 mg magnesium tablet
400 mg PO HS
amlodipine [Norvasc] 2.5 mg Tablet
2.5 mg PO DAILY
Discharge Orders:
Discharge Patient (As Directed); Ordered 07/08/25
Ordered By: Torres Goodson
Discharge Date and Time
Print Language: TAMAZIGHT
== END 2025-07-08 13:36 ==
LOC: 2 NORTH 22:25
PROVIDERS: Emergency Medicine; Physician Assistant; Registered Nurse; ADMITTING PHYSICIAN Internal Medicine; ATTENDING PHYSICIAN Internal Medicine; EMERGENCY PHYSICIAN Emergency Medicine; FAMILY PHYSICIAN Family Medicine
DX: R26.2 Difficulty in walking, not elsewhere classified (principal); R53.1 Weakness; I25.10 Atherosclerotic heart disease of native coronary artery without angina pectoris; N18.31 Chronic kidney disease, stage 3a; I13.0 Hypertensive heart and chronic kidney disease with heart failure and stage 1 through stage 4 chronic kidney disease, or unspecified chronic kidney disease; I45.10 Unspecified right bundle-branch block; E11.22 Type 2 diabetes mellitus with diabetic chronic kidney disease; E11.40 Type 2 diabetes mellitus with diabetic neuropathy, unspecified; E78.00 Pure hypercholesterolemia, unspecified; H35.30 Unspecified macular degeneration; M19.90 Unspecified osteoarthritis, unspecified site; K21.9 Gastro-esophageal reflux disease without esophagitis; D63.1 Anemia in chronic kidney disease; I25.5 Ischemic cardiomyopathy; R53.83 Other fatigue; I50.22 Chronic systolic (congestive) heart failure; E66.09 Other obesity due to excess calories; I69.354 Hemiplegia and hemiparesis following cerebral infarction affecting left non-dominant side; I25.2 Old myocardial infarction; Z86.0100 Personal history of colon polyps, unspecified; Z95.2 Presence of prosthetic heart valve; Z95.5 Presence of coronary angioplasty implant and graft; Z95.1 Presence of aortocoronary bypass graft; Z90.49 Acquired absence of other specified parts of digestive tract; Z79.899 Other long term (current) drug therapy; Z66 Do not resuscitate; Z79.4 Long term (current) use of insulin; Z79.82 Long term (current) use of aspirin; Z79.02 Long term (current) use of antithrombotics/antiplatelets; Z98.1 Arthrodesis status; Z88.5 Allergy status to narcotic agent; Z88.8 Allergy status to other drugs, medicaments and biological substances; Z91.81 History of falling
CPT/HCPCS: 70450; 80048; 80053; 81003; 81015; 82962; 83036; 85025; 85027; 87077; 87086; 87186; 93005; 97163; 99285; G0378